=== PATIENT | male | born 1955 | race Caucasian/White ===

== ENCOUNTER 2016-11-21 18:47 | Emergency (ER) | payer MEDICAID ==
[~2016-11-21] VITALS: Ht 195.6 cm; Wt 82.2 kg
[~2016-11-21 18:47] MED LIST: ASPI81CH43; FAMO40TA49; FENO5TAB; GLIP1TAB38
[2016-11-21 19:41] LABS: Basophils # (auto) 0.1 uL; Basophils % (auto) 0.6 % (0.0-2.0); DEFINITIVE VIEW TRANSMISSION; Eosinophils # (auto) 0.3 uL; Eosinophils % (auto) 2.7 % (0.0-7.0); Hematocrit 52.1 % (41.0-53.0); Hemoglobin 17.7 g/dL (13.5-17.5); Lymphocytes # (auto) 2.2 uL; Lymphocytes % (auto) 18.8 % (10.0-50.0); Mean Corpuscular Hemoglobin 29.2 pg (28.0-32.0); Mean Platelet Volume 7.6 fL (7.4-10.4); Monocytes # (auto) 0.9 uL; Monocytes % (auto) 7.7 % (0.0-12.0); Neutrophils # (auto) 8.3 uL; Neutrophils % (auto) 70.2 % (37.0-80.0); Platelet Count (auto) 257 10^3/uL (140-450); Red Cell Distribution Width 14.1 % (11.6-16.0); White Blood Cell 11.8 10^3/uL (4.4-10.8)
[2016-11-21 19:54] LABS: INR 1.13 (0.9-1.15); Prothrombin Time 11.6 sec (9.37-12.3)
[2016-11-21 19:57] LABS: Albumin 3.9 g/dL (3.4-5.0); Anion Gap 7 (5-15); Aspartate Aminotransferase 17 U/L (15-37); Blood Urea Nitrogen 15 mg/dL (7-18); Carbon Dioxide 26 mmol/L (21-32); Chloride 102 mmol/L (98-107); GFR African American 97 mL/min; GFR Non-African American 80 mL/min; Glucose 135 mg/dL (74-106); Potassium 4.3 mmol/L (3.5-5.1); Sodium 135 mmol/L (136-145)
[2016-11-21 20:02] LABS: Alkaline Phosphatase 85 U/L (45-117); Bilirubin, Total 0.5 mg/dL (0.2-1.0); Total Protein 7.8 g/dL (6.4-8.2)
[2016-11-21] MEDS ORDERED: IOHEXOL 300 MG/ML 100ML BOTTLE IJ ONE (20:09)
[2016-11-21 20:13] LABS: B-Type Natriuretic Peptide 42.21 pg/mL (0-100)
[2016-11-21 20:22] LABS: Temperature: 21.9 C (20.0-25.0)
[2016-11-21 20:50] VITALS: BP 138/67
== END 2016-11-21 22:07 | disposition home or self-care (01) ==
LOC: ER 18:51
DX: J18.1 Lobar pneumonia, unspecified organism (principal); E11.9 Type 2 diabetes mellitus without complications; I10 Essential (primary) hypertension; I25.810 Atherosclerosis of coronary artery bypass graft(s) without angina pectoris; Z79.82 Long term (current) use of aspirin; Z79.899 Other long term (current) drug therapy
CPT/HCPCS: 36415; 71010; 71260; 74177; 80053; 83735; 83880; 84484; 85025; 85610; 85730; 93005; 99285; Q9967

== ENCOUNTER 2017-03-04 13:48 | Inpatient (IN) | payer MEDICAID ==
[~2017-03-04] VITALS: Ht 193 cm; Wt 76.9 kg
[2017-03-04 15:17] LABS: Basophils # (auto) 0.1 uL; Basophils % (auto) 0.7 % (0.0-2.0); Eosinophils # (auto) 0.6 uL; Eosinophils % (auto) 6.1 % (0.0-7.0); Hematocrit 50.7 % (41.0-53.0); Lymphocytes % (auto) 19.3 % (10.0-50.0); Mean Corpuscular Hemoglobin 29.7 pg (28.0-32.0); Mean Corpuscular Hgb Conc. 33.5 g/dL (32.0-36.0); Mean Corpuscular Volume 88.6 fL (80.0-100.0); Mean Platelet Volume 8.1 fL (7.4-10.4); Monocytes % (auto) 9.5 % (0.0-12.0); Neutrophils # (auto) 6.7 uL; Neutrophils % (auto) 64.4 % (37.0-80.0); Platelet Count (auto) 329 10^3/uL (140-450); Red Cell Distribution Width 14.1 % (11.6-16.0); White Blood Cell 10.4 10^3/uL (4.4-10.8)
[2017-03-04 15:49] LABS: Albumin 3.8 g/dL (3.4-5.0); Alkaline Phosphatase 77 U/L (45-117); Anion Gap 7 (5-15); Aspartate Aminotransferase 30 U/L (15-37); BUN/Creatinine Ratio 33.3; Bilirubin, Total 1.2 mg/dL (0.2-1.0); Blood Urea Nitrogen 34 mg/dL (7-18); Calcium 9.3 mg/dL (8.5-10.1); Carbon Dioxide 27 mmol/L (21-32); Chloride 99 mmol/L (98-107); GFR African American 95 mL/min; GFR Non-African American 78 mL/min; Glucose 93 mg/dL (74-106); Magnesium 2.5 mg/dL (1.6-2.6); Potassium 3.7 mmol/L (3.5-5.1); Sodium 133 mmol/L (136-145); Total Protein 7.6 g/dL (6.4-8.2)
[2017-03-04 16:05] LABS: B-Type Natriuretic Peptide 47.08 pg/mL (0-100)
[2017-03-04 16:11] LABS: Temperature: 23.3 C (20.0-25.0)
[2017-03-04] MEDS ORDERED: DEXTROSE 50% SYRINGE 50 ML IV ONE (16:24)
[2017-03-04] MEDS ORDERED: DEXTROSE (25%) 10 ML SYRG IV ONE (16:30)
[2017-03-04] MEDS ORDERED: LIDOCAINE 2%HCL (LOCAL ANESTH.) INJ 20ML MDV ONE (16:35)
[2017-03-04] MEDS ORDERED: LIDOCAINE 2%HCL (LOCAL ANESTH.) INJ 20ML MDV IJ ONE (16:45)
[2017-03-04] MEDS ORDERED: KETAMINE HCL 50 MG/ML 10ML VIAL IV ONE (17:00)
[2017-03-04] MEDS: InsuLIN REG 1unit/0.01ml Soln (100units/ml) SC SCH ×2 (17:00→22:00)
[2017-03-04] MEDS ORDERED: DEXTROSE (50%) 50ML SYRG IV PRN (17:00)
[2017-03-04] MEDS ORDERED: cefTRIAXone 1GM/50ML D5W 50 ML IV ONE (17:00)
[2017-03-04] MEDS: ACCU-CHEK COMFORT CURVE STRIP VI SCH ×2 (17:00→22:02)
[2017-03-04] MEDS ORDERED: VANCOMYCIN PER PHARMACY 0 MG IV SCH (17:00)
[2017-03-04] MEDS ORDERED: ACETAMINOPHEN 325 MG TAB PO PRN (17:15)
[2017-03-04] MEDS ORDERED: NITROGLYCERIN 0.4 MG SL TAB SL PRN (17:15)
[2017-03-04] MEDS ORDERED: MORPHINE SULF INJ 2 MG/ML SYRINGE 1ML IV PRN (17:15)
[2017-03-04] MEDS ORDERED: HYDROcodone-ACET 5/325MG TAB PO PRN (17:15)
[2017-03-04] MEDS ORDERED: DOCUSATE SOD 100 MG CAP PO PRN (17:15)
[2017-03-04] MEDS ORDERED: TEMAZEPAM 15 MG CAP PO PRN (17:15)
[2017-03-04] MEDS ORDERED: MULTIPLE VITAMIN TAB PO ONE (17:30)
[2017-03-04] MEDS ORDERED: ZINC SULFATE 220 MG CAP PO ONE (17:30)
[2017-03-04 17:38] LABS: INR 1.06 (0.9-1.15); Prothrombin Time 11.6 sec (9.37-12.3)
[2017-03-04] MEDS: ONDANSETRON HCL 4 MG/2 ML VIAL IV PRN (17:38)
[2017-03-04] MEDS: MORPHINE SULF INJ 2 MG/ML SYRINGE 1ML IV PRN (17:38)
[2017-03-04] MEDS: PANTOPRAZOLE 40 MG TAB PO SCH (17:45)
[2017-03-04] MEDS ORDERED: LISI10TA6 PO (18:05)
[2017-03-04] MEDS ORDERED: CAR3125T PO (18:05)
[2017-03-04] MEDS ORDERED: GABA-497 PO (18:05)
[2017-03-04] MEDS ORDERED: PANT40TA2 PO (18:06)
[2017-03-04] MEDS ORDERED: AMIO200T33 PO (18:06)
[2017-03-04] MEDS ORDERED: INSLANTI SC (18:06)
[2017-03-04] MEDS ORDERED: TIOTCAP IN (18:06)
[2017-03-04] MEDS: VANCOMYCIN 1GM/250ML D5W 250 ML IV SCH ×2 (18:14→22:00)
[2017-03-04] MEDS: HYDROmorphone HCL 2 MG/ML VL IV PRN ×2 (18:25→21:59)
[2017-03-04] MEDS: ALBUTEROL SULF 2.5 MG/0.5ML(0.5%) NEB SOLN NEB SCH (18:50)
[2017-03-04] MEDS: IPRATROPIUM BROM 0.5 MG/2.5ML INH SOL NEB SCH (18:50)
[2017-03-04 20:00] VITALS: BP 107/64
[2017-03-04 21:54] VITALS: BP 125/71
[2017-03-04 22:00] VITALS: BP 116/67
[2017-03-04] MEDS: INSULIN DETEMIR(LEVEMIR) 1unit/0.01ml Soln (100units/ml) SC SCH (22:00)
[2017-03-04] MEDS: GABAPENTIN 300 MG CAP PO SCH (22:00)
[2017-03-04] MEDS ORDERED: FAMOTIDINE 20 MG TAB PO SCH (22:00)
[2017-03-04] MEDS: ASCORBIC ACID 500 MG TAB PO SCH (22:00)
[2017-03-04] MEDS: AMIODARONE HCL 200 MG TAB PO SCH (22:00)
[2017-03-04] MEDS: SODIUM CHLOR 0.9% PF (SALINE LOCK) 10ML VIAL IV SCH (22:09)
[2017-03-04] MEDS: CARVEDILOL 3.125 MG TAB PO SCH (23:37)
[2017-03-04 23:45] VITALS: BP 90/52
[2017-03-05] MEDS: IPRATROPIUM BROM 0.5 MG/2.5ML INH SOL NEB SCH ×4 (00:20→18:43)
[2017-03-05] MEDS: ALBUTEROL SULF 2.5 MG/0.5ML(0.5%) NEB SOLN NEB SCH ×4 (00:20→18:43)
[2017-03-05] MEDS: HYDROmorphone HCL 2 MG/ML VL IV PRN ×6 (01:46→18:28)
[2017-03-05 04:00] VITALS: BP 92/57
[2017-03-05 05:00] VITALS: BP 124/70
[2017-03-05] MEDS: VANCOMYCIN 1GM/250ML D5W 250 ML IV SCH ×2 (05:15→14:11)
[2017-03-05 05:44] LABS: Basophils # (auto) 0.1 uL; Basophils % (auto) 0.7 % (0.0-2.0); Eosinophils # (auto) 0.5 uL; Eosinophils % (auto) 5.7 % (0.0-7.0); Hematocrit 46.2 % (41.0-53.0); Hemoglobin 15.6 g/dL (13.5-17.5); Lymphocytes % (auto) 21.7 % (10.0-50.0); Mean Corpuscular Hemoglobin 29.9 pg (28.0-32.0); Mean Corpuscular Hgb Conc. 33.8 g/dL (32.0-36.0); Mean Corpuscular Volume 88.5 fL (80.0-100.0); Mean Platelet Volume 8.1 fL (7.4-10.4); Monocytes % (auto) 10.9 % (0.0-12.0); Neutrophils # (auto) 5.6 uL; Platelet Count (auto) 267 10^3/uL (140-450); Red Cell Distribution Width 14.2 % (11.6-16.0); White Blood Cell 9.2 10^3/uL (4.4-10.8)
[2017-03-05] MEDS ORDERED: PNEUMOCOCCAL VACC POLYS 25 MCG/0.5 ML VIAL IM ONE ×2 (06:00→10:00)
[2017-03-05 06:01] LABS: Potassium 4.1 mmol/L (3.5-5.1)
[2017-03-05 06:09] LABS: Albumin 3.1 g/dL (3.4-5.0); Calcium 8.6 mg/dL (8.5-10.1)
[2017-03-05 06:13] LABS: Bilirubin, Total 0.8 mg/dL (0.2-1.0)
[2017-03-05] MEDS: SODIUM CHLOR 0.9% PF (SALINE LOCK) 10ML VIAL IV SCH ×2 (06:27→14:01)
[2017-03-05] MEDS: MORPHINE SULF INJ 2 MG/ML SYRINGE 1ML IV PRN ×2 (06:58→20:55)
[2017-03-05] MEDS: InsuLIN REG 1unit/0.01ml Soln (100units/ml) SC SCH ×4 (06:59→21:47)
[2017-03-05] MEDS: ACCU-CHEK COMFORT CURVE STRIP VI SCH ×4 (06:59→21:47)
[2017-03-05 08:00] VITALS: BP 123/69
[2017-03-05] MEDS ORDERED: cefTRIAXone 1GM/50ML D5W 50 ML IV SCH (09:00)
[2017-03-05 09:21] VITALS: BP 129/63
[2017-03-05] MEDS: ASCORBIC ACID 500 MG TAB PO SCH ×2 (09:38→21:44)
[2017-03-05] MEDS: ZINC SULFATE 220 MG CAP PO SCH (09:39)
[2017-03-05] MEDS: MULTIPLE VITAMIN TAB PO SCH (09:39)
[2017-03-05] MEDS: GABAPENTIN 300 MG CAP PO SCH ×2 (09:40→21:44)
[2017-03-05] MEDS: AMIODARONE HCL 200 MG TAB PO SCH ×2 (09:40→21:44)
[2017-03-05] MEDS: PANTOPRAZOLE 40 MG TAB PO SCH (09:41)
[2017-03-05] MEDS: CARVEDILOL 3.125 MG TAB PO SCH ×2 (10:00→21:45)
[2017-03-05] MEDS: LISINOPRIL 10 MG TAB PO SCH (10:00)
[2017-03-05] MEDS ORDERED: PATIENTS OWN MEDICATION IN SCH ×2 (10:00)
[2017-03-05 11:57] VITALS: BP 98/60
[2017-03-05] MEDS ORDERED: HYDR-4663 PO (16:25)
[2017-03-05] MEDS ORDERED: SODIUM CHLORIDE 0.9% 250 ML IV ONE (18:45)
[2017-03-05 19:52] VITALS: BP 130/70
[2017-03-05] MEDS: CLINDAMYCIN 300MG IV 50 ML IV SCH (21:44)
[2017-03-05] MEDS: INSULIN DETEMIR(LEVEMIR) 1unit/0.01ml Soln (100units/ml) SC SCH (21:48)
[2017-03-05] MEDS: SODIUM CHLORIDE 0.9% 1,000 ML IV SCH (21:51)
[2017-03-06] VITALS: BP 145/70
[2017-03-06] MEDS: MORPHINE SULF INJ 2 MG/ML SYRINGE 1ML IV PRN ×4 (01:10→20:15)
[2017-03-06] MEDS: ALBUTEROL SULF 2.5 MG/0.5ML(0.5%) NEB SOLN NEB SCH ×4 (01:44→18:12)
[2017-03-06] MEDS: IPRATROPIUM BROM 0.5 MG/2.5ML INH SOL NEB SCH ×4 (01:44→18:12)
[2017-03-06 04:00] VITALS: BP 132/61
[2017-03-06] MEDS: SODIUM CHLORIDE 0.9% 1,000 ML IV SCH ×2 (05:11→13:00)
[2017-03-06] MEDS: CLINDAMYCIN 300MG IV 50 ML IV SCH ×3 (05:12→21:33)
[2017-03-06 05:52] LABS: Basophils # (auto) 0 uL; Basophils % (auto) 0.4 % (0.0-2.0); Eosinophils # (auto) 0.3 uL; Eosinophils % (auto) 3.3 % (0.0-7.0); Hemoglobin 14.9 g/dL (13.5-17.5); Lymphocytes # (auto) 0.8 uL; Lymphocytes % (auto) 8.4 % (10.0-50.0); Mean Corpuscular Hemoglobin 29.8 pg (28.0-32.0); Mean Corpuscular Hgb Conc. 33.8 g/dL (32.0-36.0); Mean Corpuscular Volume 88.2 fL (80.0-100.0); Mean Platelet Volume 7.9 fL (7.4-10.4); Monocytes # (auto) 0.9 uL; Monocytes % (auto) 9.9 % (0.0-12.0); Neutrophils # (auto) 7.1 uL; Platelet Count (auto) 243 10^3/uL (140-450); Red Cell Distribution Width 13.7 % (11.6-16.0); White Blood Cell 9.1 10^3/uL (4.4-10.8)
[2017-03-06 06:15] LABS: Albumin 3.1 g/dL (3.4-5.0); BUN/Creatinine Ratio 24.7; Bilirubin, Total 0.9 mg/dL (0.2-1.0); Calcium 8.4 mg/dL (8.5-10.1); Potassium 4.3 mmol/L (3.5-5.1); Total Protein 6.3 g/dL (6.4-8.2)
[2017-03-06] MEDS: InsuLIN REG 1unit/0.01ml Soln (100units/ml) SC SCH ×4 (06:29→22:32)
[2017-03-06] MEDS: ACCU-CHEK COMFORT CURVE STRIP VI SCH ×4 (06:29→21:38)
[2017-03-06 08:00] VITALS: BP 156/68
[2017-03-06] MEDS: GABAPENTIN 300 MG CAP PO SCH ×2 (10:58→21:33)
[2017-03-06] MEDS: ASCORBIC ACID 500 MG TAB PO SCH ×2 (10:58→21:33)
[2017-03-06] MEDS: ZINC SULFATE 220 MG CAP PO SCH (10:58)
[2017-03-06] MEDS: AMIODARONE HCL 200 MG TAB PO SCH ×2 (10:59→21:37)
[2017-03-06] MEDS: MULTIPLE VITAMIN TAB PO SCH (10:59)
[2017-03-06] MEDS: PANTOPRAZOLE 40 MG TAB PO SCH (10:59)
[2017-03-06] MEDS: CARVEDILOL 3.125 MG TAB PO SCH ×2 (11:00→21:37)
[2017-03-06 12:00] VITALS: BP 120/61
[2017-03-06] MEDS: LISINOPRIL 10 MG TAB PO SCH (12:29)
[2017-03-06 15:54] VITALS: BP 114/64
[2017-03-06 20:38] VITALS: BP 105/52
[2017-03-06] MEDS: INSULIN DETEMIR(LEVEMIR) 1unit/0.01ml Soln (100units/ml) SC SCH (22:32)
[2017-03-07] VITALS (7 sets, daily range): BP systolic 110–135; BP diastolic 45–68
[2017-03-07] MEDS: ALBUTEROL SULF 2.5 MG/0.5ML(0.5%) NEB SOLN NEB SCH ×5 (00:08→23:32)
[2017-03-07] MEDS: IPRATROPIUM BROM 0.5 MG/2.5ML INH SOL NEB SCH ×5 (00:08→23:32)
[2017-03-07] MEDS: MORPHINE SULF INJ 2 MG/ML SYRINGE 1ML IV PRN ×5 (02:06→22:22)
[2017-03-07] MEDS: CLINDAMYCIN 300MG IV 50 ML IV SCH ×3 (05:35→21:34)
[2017-03-07] MEDS: SODIUM CHLORIDE 0.9% 1,000 ML IV SCH (05:39)
[2017-03-07] MEDS: InsuLIN REG 1unit/0.01ml Soln (100units/ml) SC SCH ×4 (06:34→21:31)
[2017-03-07] MEDS: ACCU-CHEK COMFORT CURVE STRIP VI SCH ×4 (06:34→21:29)
[2017-03-07] MEDS: MULTIPLE VITAMIN TAB PO SCH (10:00)
[2017-03-07] MEDS: AZITHROMYCIN 500MG/D5W 250ML 250 ML IV SCH (10:35)
[2017-03-07] MEDS: GABAPENTIN 300 MG CAP PO SCH ×2 (10:36→21:26)
[2017-03-07] MEDS: ASCORBIC ACID 500 MG TAB PO SCH ×2 (10:36→21:27)
[2017-03-07] MEDS: PANTOPRAZOLE 40 MG TAB PO SCH (10:36)
[2017-03-07] MEDS: LISINOPRIL 10 MG TAB PO SCH (10:36)
[2017-03-07] MEDS: ZINC SULFATE 220 MG CAP PO SCH (10:36)
[2017-03-07] MEDS: AMIODARONE HCL 200 MG TAB PO SCH ×2 (10:38→21:25)
[2017-03-07] MEDS: CARVEDILOL 3.125 MG TAB PO SCH ×2 (10:39→21:34)
[2017-03-07] MEDS: HYDROcodone-ACET 10/325MG TAB PO PRN (21:20)
[2017-03-07] MEDS: INSULIN DETEMIR(LEVEMIR) 1unit/0.01ml Soln (100units/ml) SC SCH (21:32)
[2017-03-08] VITALS (7 sets, daily range): BP systolic 106–136; BP diastolic 57–62
[2017-03-08] MEDS: SODIUM CHLORIDE 0.9% 1,000 ML IV SCH ×4 (01:26→21:59)
[2017-03-08] MEDS: MORPHINE SULF INJ 2 MG/ML SYRINGE 1ML IV PRN ×5 (03:33→22:13)
[2017-03-08] MEDS: CLINDAMYCIN 300MG IV 50 ML IV SCH ×3 (05:46→22:11)
[2017-03-08 05:51] LABS: Basophils # (auto) 0 uL; Basophils % (auto) 0.5 % (0.0-2.0); Eosinophils # (auto) 0.2 uL; Eosinophils % (auto) 3.3 % (0.0-7.0); Hematocrit 36.6 % (41.0-53.0); Hemoglobin 12.7 g/dL (13.5-17.5); Lymphocytes # (auto) 0.9 uL; Lymphocytes % (auto) 13.5 % (10.0-50.0); Mean Corpuscular Hemoglobin 31.1 pg (28.0-32.0); Mean Corpuscular Hgb Conc. 34.7 g/dL (32.0-36.0); Mean Corpuscular Volume 89.6 fL (80.0-100.0); Mean Platelet Volume 7.5 fL (7.4-10.4); Monocytes # (auto) 0.7 uL; Monocytes % (auto) 10.4 % (0.0-12.0); Neutrophils # (auto) 5.1 uL; Neutrophils % (auto) 72.3 % (37.0-80.0); Platelet Count (auto) 192 10^3/uL (140-450); Red Cell Distribution Width 14.1 % (11.6-16.0)
[2017-03-08] MEDS: ACCU-CHEK COMFORT CURVE STRIP VI SCH ×4 (05:55→22:13)
[2017-03-08] MEDS: InsuLIN REG 1unit/0.01ml Soln (100units/ml) SC SCH ×4 (05:55→22:28)
[2017-03-08] MEDS: IPRATROPIUM BROM 0.5 MG/2.5ML INH SOL NEB SCH ×3 (06:06→20:10)
[2017-03-08] MEDS: ALBUTEROL SULF 2.5 MG/0.5ML(0.5%) NEB SOLN NEB SCH ×3 (06:06→20:10)
[2017-03-08 06:10] LABS: BUN/Creatinine Ratio 16.9; Calcium 7.9 mg/dL (8.5-10.1); Potassium 3.7 mmol/L (3.5-5.1)
[2017-03-08] MEDS: AZITHROMYCIN 500MG/D5W 250ML 250 ML IV SCH (09:36)
[2017-03-08] MEDS: ZINC SULFATE 220 MG CAP PO SCH (09:39)
[2017-03-08] MEDS: MULTIPLE VITAMIN TAB PO SCH (09:39)
[2017-03-08] MEDS: GABAPENTIN 300 MG CAP PO SCH ×2 (09:40→22:13)
[2017-03-08] MEDS: AMIODARONE HCL 200 MG TAB PO SCH ×2 (09:40→22:12)
[2017-03-08] MEDS: CARVEDILOL 3.125 MG TAB PO SCH ×2 (09:41→22:12)
[2017-03-08] MEDS: PANTOPRAZOLE 40 MG TAB PO SCH (09:41)
[2017-03-08] MEDS: ASCORBIC ACID 500 MG TAB PO SCH ×2 (09:42→22:13)
[2017-03-08] MEDS: LISINOPRIL 10 MG TAB PO SCH (09:42)
[2017-03-08 15:31] LABS: Base Excess 1.3 mmol/L (-2.0-2.0); Blood 02Sat 89.5 % (96-100); Blood COHb 0.4 % (0.5-1.5); Blood MetHb 0.2 % (0.0-1.5); HCO3 27.8 mmol/L (22-26.0); HHb 10.4 % (0.0-5.0); MODE NC; PCO2 51.2 mmHg (35.0-45.0); PCO2(T) 51.2 mmHg (35.0-45.0); PO2 61.7 mmHg (80.0-100.0); PO2(T) 61.7 mmHg (80.0-100.0); Room 0240T; Sample Type Arterial; pH 7.352 (7.350-7.450)
[2017-03-08] MEDS: ACETYLCYSTEINE 10 %(100MG/ML) SOL 4ML NEB SCH (20:10)
[2017-03-08] MEDS: INSULIN DETEMIR(LEVEMIR) 1unit/0.01ml Soln (100units/ml) SC SCH (22:29)
[2017-03-09] MEDS: ACETYLCYSTEINE 10 %(100MG/ML) SOL 4ML NEB SCH ×7 (01:22→22:25)
[2017-03-09] MEDS: ALBUTEROL SULF 2.5 MG/0.5ML(0.5%) NEB SOLN NEB SCH ×5 (01:24→18:15)
[2017-03-09] MEDS: MORPHINE SULF INJ 2 MG/ML SYRINGE 1ML IV PRN ×4 (03:30→18:37)
[2017-03-09] MEDS: SODIUM CHLORIDE 0.9% 1,000 ML IV SCH ×3 (04:16→17:27)
[2017-03-09 04:42] VITALS: BP 120/60
[2017-03-09] MEDS: CLINDAMYCIN 300MG IV 50 ML IV SCH ×3 (05:54→22:15)
[2017-03-09] MEDS: InsuLIN REG 1unit/0.01ml Soln (100units/ml) SC SCH ×4 (06:06→22:00)
[2017-03-09] MEDS: ACCU-CHEK COMFORT CURVE STRIP VI SCH ×4 (06:06→22:00)
[2017-03-09] MEDS: IPRATROPIUM BROM 0.5 MG/2.5ML INH SOL NEB SCH ×4 (06:08→18:15)
[2017-03-09 07:37] VITALS: BP 127/62
[2017-03-09 08:00] VITALS: BP 127/62
[2017-03-09] MEDS: AMIODARONE HCL 200 MG TAB PO SCH ×2 (09:38→22:16)
[2017-03-09] MEDS: ZINC SULFATE 220 MG CAP PO SCH (09:38)
[2017-03-09] MEDS: ASCORBIC ACID 500 MG TAB PO SCH ×2 (09:39→22:17)
[2017-03-09] MEDS: LISINOPRIL 10 MG TAB PO SCH (09:39)
[2017-03-09] MEDS: PANTOPRAZOLE 40 MG TAB PO SCH (09:39)
[2017-03-09] MEDS: MULTIPLE VITAMIN TAB PO SCH (09:39)
[2017-03-09] MEDS: GABAPENTIN 300 MG CAP PO SCH ×2 (09:40→22:24)
[2017-03-09] MEDS: CARVEDILOL 3.125 MG TAB PO SCH ×2 (09:40→22:17)
[2017-03-09] MEDS: AZITHROMYCIN 500MG/D5W 250ML 250 ML IV SCH (09:41)
[2017-03-09 11:06] VITALS: BP 109/56
[2017-03-09 16:20] VITALS: BP 124/58
[2017-03-09] MEDS: INSULIN DETEMIR(LEVEMIR) 1unit/0.01ml Soln (100units/ml) SC SCH (22:00)
[2017-03-09] MEDS ORDERED: NALOXONE HCL 0.4 MG/ML VIAL ONE (22:31)
[2017-03-09] MEDS ORDERED: SUCCINYLCHOLINE CHLORIDE 20 MG/ML 10ML VIAL IV ONE (22:58)
[2017-03-09] MEDS ORDERED: ETOMIDATE (2MG/ML) 20ML VIAL IV ONE ×2 (22:58→23:30)
[2017-03-09] MEDS ORDERED: MIDAZOLAM HCL 1MG/1ML-2 ML VIAL ONE (22:59)
[2017-03-09] MEDS ORDERED: methylPREDNISolone SOD SUCC 125 MG/2 ML VL ONE (23:02)
[2017-03-09] MEDS ORDERED: MIDAZOLAM HCL 5 MG/ML-1ML VIAL ONE (23:06)
[2017-03-09] MEDS ORDERED: PROPOFOL 100 ML IV ONE (23:22)
[2017-03-09] MEDS ORDERED: MIDAZOLAM HCL 5 MG/ML-1ML VIAL IV ONE (23:30)
[2017-03-09] MEDS ORDERED: methylPREDNISolone SOD SUCC 125 MG/2 ML VL IV ONE ×2 (23:30)
[2017-03-09] MEDS ORDERED: NALOXONE HCL 0.4 MG/ML VIAL IV ONE (23:30)
[2017-03-09] MEDS ORDERED: FUROSEMIDE 40 MG/4 ML VIAL ONE (23:41)
[2017-03-09] MEDS ORDERED: FUROSEMIDE 40 MG/4 ML VIAL IV ONE (23:45)
[2017-03-09] MEDS ORDERED: MIDAZOLAM DRIP 100 mg/100mL NS 100 ML IV ONE (23:46)
[2017-03-09] MEDS: PROPOFOL 100 ML IV SCH (23:47)
[2017-03-10] VITALS (102 sets, daily range): BP systolic 66–137; BP diastolic 32–72
[2017-03-10] MEDS: NOREPINEPHRINE BITARTRATE 250 ML IV SCH (00:15)
[2017-03-10] MEDS ORDERED: NOREPINEPHRINE BITARTRATE 250 ML IV ONE (00:15)
[2017-03-10] MEDS: MORPHINE SULF INJ 2 MG/ML SYRINGE 1ML IV PRN (01:21)
[2017-03-10] MEDS: ACCU-CHEK COMFORT CURVE STRIP VI SCH ×5 (01:32→22:40)
[2017-03-10] MEDS: InsuLIN REG 1unit/0.01ml Soln (100units/ml) SC SCH ×5 (01:33→22:40)
[2017-03-10 03:57] LABS: Allen Test Yes; Base Excess -1.2 mmol/L (-2.0-2.0); Blood 02Sat 97.3 % (96-100); Blood COHb 1.1 % (0.5-1.5); Blood MetHb 0.3 % (0.0-1.5); HHb 2.7 % (0.0-5.0); MODE VENT - A/C; O2Hb 95.9 % (94.0-97.0); PCO2 41.9 mmHg (35.0-45.0); PCO2(T) 41.9 mmHg (35.0-45.0); PO2 100.5 mmHg (80.0-100.0); PO2(T) 100.5 mmHg (80.0-100.0); Sample Type Arterial; pH 7.376 (7.350-7.450)
[2017-03-10 03:59] LABS: Allen Test Yes; Base Excess -1.1 mmol/L (-2.0-2.0); Blood 02Sat 96.2 % (96-100); Blood COHb 0.1 % (0.5-1.5); Blood MetHb 0.4 % (0.0-1.5); HCO3 32.1 mmol/L (22-26.0); HHb 3.8 % (0.0-5.0); MODE MASK - BIPAP; O2Hb 95.7 % (94.0-97.0); PIP 12; PO2 119.5 mmHg (80.0-100.0); PO2(T) 119.5 mmHg (80.0-100.0); Room 0237T; Sample Type Arterial; pH 7.103 (7.350-7.450)
[2017-03-10] MEDS: SODIUM CHLORIDE 0.9% 1,000 ML IV SCH (04:48)
[2017-03-10] MEDS: CLINDAMYCIN 300MG IV 50 ML IV SCH ×3 (06:18→22:40)
[2017-03-10] MEDS: MIDAZOLAM DRIP 100 mg/100mL NS 100 ML IV SCH ×3 (06:19→12:22)
[2017-03-10] MEDS: ACETYLCYSTEINE 10 %(100MG/ML) SOL 4ML NEB SCH ×4 (06:36→22:55)
[2017-03-10] MEDS: IPRATROPIUM BROM 0.5 MG/2.5ML INH SOL NEB SCH ×4 (06:36→19:05)
[2017-03-10] MEDS: ALBUTEROL SULF 2.5 MG/0.5ML(0.5%) NEB SOLN NEB SCH ×4 (06:36→19:05)
[2017-03-10 07:46] LABS: Allen Test Yes; Base Excess 1.8 mmol/L (-2.0-2.0); Blood 02Sat 95.7 % (96-100); Blood MetHb 0.2 % (0.0-1.5); HCO3 26.9 mmol/L (22-26.0); HHb 4.2 % (0.0-5.0); MODE VENT - A/C; O2Hb 94.6 % (94.0-97.0); PO2 82.9 mmHg (80.0-100.0); PO2(T) 82.9 mmHg (80.0-100.0); Sample Type Arterial; pH 7.404 (7.350-7.450)
[2017-03-10 08:46] LABS: Albumin 2.3 g/dL (3.4-5.0); BUN/Creatinine Ratio 21.1; Calcium 8.2 mg/dL (8.5-10.1); Potassium 3.6 mmol/L (3.5-5.1)
[2017-03-10 08:51] LABS: Bilirubin, Total 0.5 mg/dL (0.2-1.0)
[2017-03-10] MEDS: PROPOFOL 100 ML IV SCH (09:12)
[2017-03-10] MEDS: LISINOPRIL 10 MG TAB PO SCH (10:00)
[2017-03-10] MEDS: CARVEDILOL 3.125 MG TAB PO SCH ×2 (10:00→22:00)
[2017-03-10] MEDS: PANTOPRAZOLE 40 MG TAB PO SCH (10:26)
[2017-03-10] MEDS: AZITHROMYCIN 500MG/D5W 250ML 250 ML IV SCH (10:26)
[2017-03-10] MEDS: AMIODARONE HCL 200 MG TAB PO SCH ×2 (10:26→22:00)
[2017-03-10] MEDS: MULTIPLE VITAMIN TAB PO SCH (10:26)
[2017-03-10] MEDS: ZINC SULFATE 220 MG CAP PO SCH (10:27)
[2017-03-10] MEDS: ASCORBIC ACID 500 MG TAB PO SCH ×2 (10:27→22:40)
[2017-03-10] MEDS: GABAPENTIN 300 MG CAP PO SCH ×2 (10:27→22:00)
[2017-03-10 11:55] LABS: B-Type Natriuretic Peptide 460.85 pg/mL (0-100)
[2017-03-10 11:59] LABS: Temperature: 23.1 C (20.0-25.0)
[2017-03-10] MEDS: FUROSEMIDE 40 MG/4 ML VIAL IV SCH ×2 (12:08→17:07)
[2017-03-10] MEDS: POTASSIUM CHL 10% (20 MEQ/15ML) ORAL SOLN GT SCH ×2 (12:08→22:40)
[2017-03-10] MEDS ORDERED: SODIUM CHLORIDE 0.9% 1,000 ML IV SCH (13:09)
[2017-03-10] MEDS: ENOXAPARIN SOD 40 MG/0.4 ML SYRINGE SC SCH (13:45)
[2017-03-10] MEDS ORDERED: DIGOXIN 0.125 MG TAB PO ONE (15:00)
[2017-03-10] MEDS: SPIRONOLACTONE 25 MG TAB PO SCH (17:07)
[2017-03-10] MEDS: INSULIN DETEMIR(LEVEMIR) 1unit/0.01ml Soln (100units/ml) SC SCH (22:00)
[2017-03-10] MEDS: ALBUTEROL SULF 2.5 MG/0.5ML(0.5%) NEB SOLN NEB PRN (22:55)
[2017-03-11] VITALS (101 sets, daily range): BP systolic 74–141; BP diastolic 41–77
[2017-03-11] MEDS: ALBUTEROL SULF 2.5 MG/0.5ML(0.5%) NEB SOLN NEB PRN ×2 (02:34→22:14)
[2017-03-11] MEDS: ACETYLCYSTEINE 10 %(100MG/ML) SOL 4ML NEB SCH ×6 (02:34→22:15)
[2017-03-11 04:08] LABS: Basophils # (auto) 0 uL; Eosinophils # (auto) 0 uL; Hematocrit 39.1 % (41.0-53.0); Hemoglobin 13.3 g/dL (13.5-17.5); Lymphocytes # (auto) 0.8 uL; Mean Corpuscular Hemoglobin 30.3 pg (28.0-32.0); Mean Corpuscular Hgb Conc. 33.9 g/dL (32.0-36.0); Mean Corpuscular Volume 89.4 fL (80.0-100.0); Mean Platelet Volume 7.8 fL (7.4-10.4); Platelet Count (auto) 317 10^3/uL (140-450); Red Cell Distribution Width 13.9 % (11.6-16.0); White Blood Cell 12.7 10^3/uL (4.4-10.8)
[2017-03-11 04:23] LABS: INR 1.11 (0.9-1.15); Partial Thromboplastin Time 27.5 sec (22.64-33.71); Prothrombin Time 12.1 sec (9.37-12.3)
[2017-03-11 04:24] LABS: Albumin 2.3 g/dL (3.4-5.0); BUN/Creatinine Ratio 34.9; Bilirubin, Total 0.5 mg/dL (0.2-1.0); Calcium 8.6 mg/dL (8.5-10.1); Total Protein 5.6 g/dL (6.4-8.2)
[2017-03-11] MEDS: FUROSEMIDE 40 MG/4 ML VIAL IV SCH ×2 (06:20→17:58)
[2017-03-11] MEDS: CLINDAMYCIN 300MG IV 50 ML IV SCH ×3 (06:20→22:00)
[2017-03-11] MEDS: ACCU-CHEK COMFORT CURVE STRIP VI SCH ×4 (06:21→22:45)
[2017-03-11] MEDS: SPIRONOLACTONE 25 MG TAB PO SCH ×2 (06:21→17:58)
[2017-03-11] MEDS: InsuLIN REG 1unit/0.01ml Soln (100units/ml) SC SCH ×4 (06:22→23:15)
[2017-03-11] MEDS: ALBUTEROL SULF 2.5 MG/0.5ML(0.5%) NEB SOLN NEB SCH ×4 (06:59→18:22)
[2017-03-11] MEDS: IPRATROPIUM BROM 0.5 MG/2.5ML INH SOL NEB SCH ×4 (06:59→18:22)
[2017-03-11 09:40] LABS: Allen Test Yes; Base Excess 6.5 mmol/L (-2.0-2.0); Blood 02Sat 90.3 % (96-100); Blood COHb 0.8 % (0.5-1.5); Blood MetHb 0.2 % (0.0-1.5); HCO3 30.7 mmol/L (22-26.0); HHb 9.6 % (0.0-5.0); MODE VENT - A/C; O2Hb 89.4 % (94.0-97.0); PCO2 42.6 mmHg (35.0-45.0); PCO2(T) 42.6 mmHg (35.0-45.0); PO2 57.9 mmHg (80.0-100.0); PO2(T) 57.9 mmHg (80.0-100.0); Sample Type Arterial; pH 7.476 (7.350-7.450)
[2017-03-11] MEDS: LISINOPRIL 10 MG TAB PO SCH (10:00)
[2017-03-11] MEDS: CARVEDILOL 3.125 MG TAB PO SCH ×2 (10:00→22:00)
[2017-03-11] MEDS: ZINC SULFATE 220 MG CAP PO SCH (10:45)
[2017-03-11] MEDS: GABAPENTIN 300 MG CAP PO SCH ×2 (10:45→22:00)
[2017-03-11] MEDS: PANTOPRAZOLE 40 MG TAB PO SCH (10:45)
[2017-03-11] MEDS: POTASSIUM CHL 10% (20 MEQ/15ML) ORAL SOLN GT SCH ×2 (10:45→22:00)
[2017-03-11] MEDS: ASCORBIC ACID 500 MG TAB PO SCH ×2 (10:45→22:00)
[2017-03-11] MEDS: AZITHROMYCIN 500MG/D5W 250ML 250 ML IV SCH (10:45)
[2017-03-11] MEDS: DIGOXIN 0.125 MG TAB PO SCH (10:45)
[2017-03-11] MEDS: ENOXAPARIN SOD 40 MG/0.4 ML SYRINGE SC SCH (10:46)
[2017-03-11] MEDS: AMIODARONE HCL 200 MG TAB PO SCH ×2 (10:50→22:00)
[2017-03-11] MEDS: NOREPINEPHRINE BITARTRATE 250 ML IV SCH (11:00)
[2017-03-11] MEDS ORDERED: EPINEPHrine HCL 1 MG/1 ML AMP ONE (11:12)
[2017-03-11] MEDS ORDERED: LIDOCAINE HCL 2% TOP JELLY 5ML TOP ONE (11:12)
[2017-03-11] MEDS ORDERED: LIDOCAINE 2%HCL (LOCAL ANESTH.) INJ 20ML MDV ONE (11:12)
[2017-03-11] MEDS ORDERED: SODIUM CHLORIDE LOCK 10 ML ONE (11:12)
[2017-03-11] MEDS: MIDAZOLAM DRIP 100 mg/100mL NS 100 ML IV SCH ×2 (12:07→19:01)
[2017-03-11] MEDS ORDERED: SODIUM CHLORIDE 0.9% 1,000 ML IV SCH (13:01)
[2017-03-11] MEDS: SODIUM CHLORIDE 0.9% 1,000 ML IV SCH (15:40)
[2017-03-11] MEDS: PROPOFOL 100 ML IV SCH (15:42)
[2017-03-11] MEDS: INSULIN DETEMIR(LEVEMIR) 1unit/0.01ml Soln (100units/ml) SC SCH (22:00)
[2017-03-12] VITALS (90 sets, daily range): BP systolic 88–147; BP diastolic 46–70
[2017-03-12] MEDS: ACETYLCYSTEINE 10 %(100MG/ML) SOL 4ML NEB SCH ×5 (02:21→18:59)
[2017-03-12] MEDS: ALBUTEROL SULF 2.5 MG/0.5ML(0.5%) NEB SOLN NEB PRN (02:21)
[2017-03-12 04:25] LABS: Basophils # (auto) 0 uL; Basophils % (auto) 0.2 % (0.0-2.0); Eosinophils # (auto) 0 uL; Eosinophils % (auto) 0.3 % (0.0-7.0); Hematocrit 38.4 % (41.0-53.0); Hemoglobin 12.9 g/dL (13.5-17.5); Lymphocytes # (auto) 1.4 uL; Lymphocytes % (auto) 13.9 % (10.0-50.0); Mean Corpuscular Hgb Conc. 33.6 g/dL (32.0-36.0); Mean Corpuscular Volume 89.1 fL (80.0-100.0); Mean Platelet Volume 7.9 fL (7.4-10.4); Monocytes % (auto) 10.4 % (0.0-12.0); Neutrophils # (auto) 7.5 uL; Neutrophils % (auto) 75.2 % (37.0-80.0); Platelet Count (auto) 320 10^3/uL (140-450); Red Cell Distribution Width 13.9 % (11.6-16.0)
[2017-03-12 04:44] LABS: Potassium 3.9 mmol/L (3.5-5.1)
[2017-03-12 04:50] LABS: BUN/Creatinine Ratio 36.8; Calcium 8.3 mg/dL (8.5-10.1)
[2017-03-12] MEDS: ALBUTEROL SULF 2.5 MG/0.5ML(0.5%) NEB SOLN NEB SCH ×4 (06:05→18:59)
[2017-03-12] MEDS: IPRATROPIUM BROM 0.5 MG/2.5ML INH SOL NEB SCH ×4 (06:05→18:59)
[2017-03-12] MEDS ORDERED: FUROSEMIDE 20 MG/2 ML VIAL ONE (06:27)
[2017-03-12] MEDS: ACCU-CHEK COMFORT CURVE STRIP VI SCH ×4 (06:35→23:15)
[2017-03-12] MEDS: CLINDAMYCIN 300MG IV 50 ML IV SCH ×3 (06:35→22:30)
[2017-03-12] MEDS: SPIRONOLACTONE 25 MG TAB PO SCH ×2 (06:35→17:53)
[2017-03-12] MEDS: InsuLIN REG 1unit/0.01ml Soln (100units/ml) SC SCH ×4 (06:37→23:35)
[2017-03-12] MEDS: FUROSEMIDE 40 MG/4 ML VIAL IV SCH ×2 (06:37→17:53)
[2017-03-12 07:31] LABS: Allen Test Yes; Base Excess 3.2 mmol/L (-2.0-2.0); Blood 02Sat 92.8 % (96-100); Blood MetHb 0.1 % (0.0-1.5); HCO3 26.7 mmol/L (22-26.0); HHb 7.1 % (0.0-5.0); MODE VENT - A/C; O2Hb 91.8 % (94.0-97.0); PCO2 37.4 mmHg (35.0-45.0); PCO2(T) 37.4 mmHg (35.0-45.0); PO2 66.5 mmHg (80.0-100.0); PO2(T) 66.5 mmHg (80.0-100.0); Sample Type Arterial; pH 7.472 (7.350-7.450)
[2017-03-12] MEDS: LISINOPRIL 10 MG TAB PO SCH (10:00)
[2017-03-12] MEDS ORDERED: MULTIPLE VITAMIN TAB PO SCH (10:00)
[2017-03-12] MEDS: CARVEDILOL 3.125 MG TAB PO SCH ×2 (10:00→23:15)
[2017-03-12] MEDS: ZINC SULFATE 220 MG CAP PO SCH (10:08)
[2017-03-12] MEDS: PANTOPRAZOLE 40 MG TAB PO SCH (10:08)
[2017-03-12] MEDS: ASCORBIC ACID 500 MG TAB PO SCH ×2 (10:09→23:15)
[2017-03-12] MEDS: ENOXAPARIN SOD 40 MG/0.4 ML SYRINGE SC SCH (10:09)
[2017-03-12] MEDS: DIGOXIN 0.125 MG TAB PO SCH (10:09)
[2017-03-12] MEDS: AMIODARONE HCL 200 MG TAB PO SCH ×2 (10:09→23:15)
[2017-03-12] MEDS: GABAPENTIN 300 MG CAP PO SCH ×2 (10:09→23:15)
[2017-03-12] MEDS: POTASSIUM CHL 10% (20 MEQ/15ML) ORAL SOLN GT SCH ×2 (10:10→23:15)
[2017-03-12] MEDS: MULTIPLE VITAMIN PO SCH (12:30)
[2017-03-12] MEDS: NOREPINEPHRINE BITARTRATE 250 ML IV SCH (13:40)
[2017-03-12] MEDS: INSULIN DETEMIR(LEVEMIR) 1unit/0.01ml Soln (100units/ml) SC SCH (22:00)
[2017-03-13] VITALS (90 sets, daily range): BP systolic 69–151; BP diastolic 41–70
[2017-03-13] MEDS: ALBUTEROL SULF 2.5 MG/0.5ML(0.5%) NEB SOLN NEB PRN (00:36)
[2017-03-13] MEDS: ACETYLCYSTEINE 10 %(100MG/ML) SOL 4ML NEB SCH ×5 (00:36→22:15)
[2017-03-13] MEDS: MIDAZOLAM DRIP 100 mg/100mL NS 100 ML IV SCH (00:53)
[2017-03-13] MEDS: NOREPINEPHRINE BITARTRATE 250 ML IV SCH (00:53)
[2017-03-13] MEDS: MORPHINE SULF INJ 2 MG/ML SYRINGE 1ML IV PRN (03:32)
[2017-03-13 03:41] LABS: BUN/Creatinine Ratio 41.4; Calcium 8.3 mg/dL (8.5-10.1); Potassium 4.1 mmol/L (3.5-5.1)
[2017-03-13] MEDS: PROPOFOL 100 ML IV SCH (04:15)
[2017-03-13] MEDS: FUROSEMIDE 40 MG/4 ML VIAL IV SCH ×2 (06:00→18:17)
[2017-03-13] MEDS: CLINDAMYCIN 300MG IV 50 ML IV SCH ×3 (06:00→21:35)
[2017-03-13] MEDS: SPIRONOLACTONE 25 MG TAB PO SCH ×2 (06:00→18:17)
[2017-03-13] MEDS: IPRATROPIUM BROM 0.5 MG/2.5ML INH SOL NEB SCH ×4 (06:23→18:39)
[2017-03-13] MEDS: ALBUTEROL SULF 2.5 MG/0.5ML(0.5%) NEB SOLN NEB SCH ×4 (06:23→18:39)
[2017-03-13] MEDS: ACCU-CHEK COMFORT CURVE STRIP VI SCH ×4 (06:36→22:05)
[2017-03-13] MEDS: InsuLIN REG 1unit/0.01ml Soln (100units/ml) SC SCH ×4 (06:37→22:05)
[2017-03-13 08:47] LABS: Allen Test Modified; Blood 02Sat 93.2 % (96-100); Blood COHb 1.4 % (0.5-1.5); Blood MetHb 0.1 % (0.0-1.5); HCO3 28.2 mmol/L (22-26.0); HHb 6.7 % (0.0-5.0); MODE VENT - A/C; O2Hb 91.8 % (94.0-97.0); PCO2 40.5 mmHg (35.0-45.0); PCO2(T) 40.5 mmHg (35.0-45.0); PO2 68.7 mmHg (80.0-100.0); PO2(T) 68.7 mmHg (80.0-100.0); Sample Type Arterial
[2017-03-13] MEDS: GABAPENTIN 300 MG CAP PO SCH ×2 (09:34→21:33)
[2017-03-13] MEDS: PANTOPRAZOLE 40 MG TAB PO SCH (09:34)
[2017-03-13] MEDS: ASCORBIC ACID 500 MG TAB PO SCH ×2 (09:34→21:33)
[2017-03-13] MEDS: ENOXAPARIN SOD 40 MG/0.4 ML SYRINGE SC SCH (09:34)
[2017-03-13] MEDS: ZINC SULFATE 220 MG CAP PO SCH (09:34)
[2017-03-13] MEDS: AMIODARONE HCL 200 MG TAB PO SCH ×2 (09:34→21:33)
[2017-03-13] MEDS: DIGOXIN 0.125 MG TAB PO SCH (09:35)
[2017-03-13] MEDS: SODIUM CHLORIDE 0.9% 1,000 ML IV SCH (09:35)
[2017-03-13] MEDS: POTASSIUM CHL 10% (20 MEQ/15ML) ORAL SOLN GT SCH ×2 (09:35→21:34)
[2017-03-13] MEDS: CARVEDILOL 3.125 MG TAB PO SCH ×2 (09:36→22:00)
[2017-03-13] MEDS: LISINOPRIL 10 MG TAB PO SCH (09:37)
[2017-03-13] MEDS: MULTIPLE VITAMIN PO SCH (11:07)
[2017-03-13] MEDS ORDERED: Diabetisource AC 1 Liter PO SCH (12:30)
[2017-03-13] MEDS: HYDROcodone-ACET 10/325MG TAB PO PRN (21:33)
[2017-03-13] MEDS: INSULIN DETEMIR(LEVEMIR) 1unit/0.01ml Soln (100units/ml) SC SCH (22:00)
[2017-03-14] VITALS (101 sets, daily range): BP systolic 73–211; BP diastolic 41–107
[2017-03-14] MEDS: NOREPINEPHRINE BITARTRATE 250 ML IV SCH (00:53)
[2017-03-14] MEDS: ACETYLCYSTEINE 10 %(100MG/ML) SOL 4ML NEB SCH ×6 (02:00→22:14)
[2017-03-14 04:17] LABS: Basophils # (auto) 0 uL; Basophils % (auto) 0.1 % (0.0-2.0); CONDITION AutoValidated; Eosinophils # (auto) 0.2 uL; Eosinophils % (auto) 1.3 % (0.0-7.0); Hematocrit 41.6 % (41.0-53.0); Lymphocytes # (auto) 1.2 uL; Lymphocytes % (auto) 10.1 % (10.0-50.0); Mean Corpuscular Hemoglobin 30.1 pg (28.0-32.0); Mean Corpuscular Hgb Conc. 33.7 g/dL (32.0-36.0); Mean Corpuscular Volume 89.2 fL (80.0-100.0); Mean Platelet Volume 8.2 fL (7.4-10.4); Monocytes # (auto) 1.3 uL; Neutrophils # (auto) 9.4 uL; Neutrophils % (auto) 77.5 % (37.0-80.0); Platelet Count (auto) 302 10^3/uL (140-450); Red Cell Distribution Width 13.7 % (11.6-16.0); White Blood Cell 12.1 10^3/uL (4.4-10.8)
[2017-03-14 04:29] LABS: Calcium 8.8 mg/dL (8.5-10.1); Potassium 3.7 mmol/L (3.5-5.1)
[2017-03-14 04:31] LABS: BUN/Creatinine Ratio 47.4
[2017-03-14] MEDS: CLINDAMYCIN 300MG IV 50 ML IV SCH ×3 (06:00→21:24)
[2017-03-14] MEDS: FUROSEMIDE 40 MG/4 ML VIAL IV SCH ×2 (06:00→18:13)
[2017-03-14] MEDS: SPIRONOLACTONE 25 MG TAB PO SCH ×2 (06:00→18:13)
[2017-03-14] MEDS: ALBUTEROL SULF 2.5 MG/0.5ML(0.5%) NEB SOLN NEB SCH ×4 (06:10→18:33)
[2017-03-14] MEDS: IPRATROPIUM BROM 0.5 MG/2.5ML INH SOL NEB SCH ×4 (06:10→18:33)
[2017-03-14] MEDS: ACCU-CHEK COMFORT CURVE STRIP VI SCH ×4 (07:45→21:35)
[2017-03-14] MEDS: InsuLIN REG 1unit/0.01ml Soln (100units/ml) SC SCH ×4 (07:48→21:36)
[2017-03-14] MEDS: SODIUM CHLORIDE 0.9% 1,000 ML IV SCH ×2 (08:00→14:00)
[2017-03-14] MEDS: DEXMEDETOMIDINE HCL 400 MCG in SODIUM CHL 0.9% 96 ML IV SCH ×2 (08:15→12:10)
[2017-03-14] MEDS: ENOXAPARIN SOD 40 MG/0.4 ML SYRINGE SC SCH (09:55)
[2017-03-14] MEDS: GABAPENTIN 300 MG CAP PO SCH ×2 (09:55→21:26)
[2017-03-14] MEDS: MULTIPLE VITAMIN PO SCH (09:55)
[2017-03-14] MEDS: DIGOXIN 0.125 MG TAB PO SCH (09:55)
[2017-03-14] MEDS: HYDROcodone-ACET 10/325MG TAB PO PRN (09:55)
[2017-03-14] MEDS: LISINOPRIL 10 MG TAB PO SCH (09:55)
[2017-03-14] MEDS: CARVEDILOL 3.125 MG TAB PO SCH ×2 (09:55→21:25)
[2017-03-14] MEDS: ZINC SULFATE 220 MG CAP PO SCH (09:55)
[2017-03-14] MEDS: ASCORBIC ACID 500 MG TAB PO SCH ×2 (09:55→21:27)
[2017-03-14] MEDS: AMIODARONE HCL 200 MG TAB PO SCH ×2 (09:55→21:25)
[2017-03-14] MEDS: POTASSIUM CHL 10% (20 MEQ/15ML) ORAL SOLN GT SCH ×2 (09:55→21:24)
[2017-03-14 09:56] LABS: Allen Test Yes; Blood 02Sat 94.4 % (96-100); Blood COHb 1.7 % (0.5-1.5); Blood MetHb 0.3 % (0.0-1.5); HCO3 28.3 mmol/L (22-26.0); HHb 5.5 % (0.0-5.0); MODE VENT - A/C; O2Hb 92.5 % (94.0-97.0); PCO2 41.1 mmHg (35.0-45.0); PCO2(T) 41.1 mmHg (35.0-45.0); PO2 74.3 mmHg (80.0-100.0); PO2(T) 74.3 mmHg (80.0-100.0); Sample Type Arterial; pH 7.456 (7.350-7.450)
[2017-03-14] MEDS: MORPHINE SULF INJ 2 MG/ML SYRINGE 1ML IV PRN ×2 (10:46→16:10)
[2017-03-14] MEDS: OMEPRAZOLE 20MG/10ML ORAL SUSP NG SCH (11:55)
[2017-03-14] MEDS: FREE WATER GT SCH ×2 (18:13→23:33)
[2017-03-14] MEDS: INSULIN DETEMIR(LEVEMIR) 1unit/0.01ml Soln (100units/ml) SC SCH (21:48)
[2017-03-14] MEDS: ALBUTEROL SULF 2.5 MG/0.5ML(0.5%) NEB SOLN NEB PRN (22:14)
[2017-03-15] VITALS (102 sets, daily range): BP systolic 96–143; BP diastolic 37–92
[2017-03-15] MEDS: NOREPINEPHRINE BITARTRATE 250 ML IV SCH (00:53)
[2017-03-15] MEDS: ACETYLCYSTEINE 10 %(100MG/ML) SOL 4ML NEB SCH ×4 (02:13→18:19)
[2017-03-15] MEDS: ALBUTEROL SULF 2.5 MG/0.5ML(0.5%) NEB SOLN NEB PRN (02:13)
[2017-03-15] MEDS: MORPHINE SULF INJ 2 MG/ML SYRINGE 1ML IV PRN ×2 (02:29→14:47)
[2017-03-15 03:56] LABS: Basophils # (auto) 0 uL; Basophils % (auto) 0.2 % (0.0-2.0); CONDITION AutoValidated; Eosinophils # (auto) 0.1 uL; Eosinophils % (auto) 0.4 % (0.0-7.0); Hematocrit 38.8 % (41.0-53.0); Lymphocytes # (auto) 0.9 uL; Lymphocytes % (auto) 7.4 % (10.0-50.0); Mean Corpuscular Hemoglobin 29.8 pg (28.0-32.0); Mean Corpuscular Hgb Conc. 33.6 g/dL (32.0-36.0); Mean Corpuscular Volume 88.9 fL (80.0-100.0); Mean Platelet Volume 8.1 fL (7.4-10.4); Monocytes # (auto) 1.2 uL; Monocytes % (auto) 9.5 % (0.0-12.0); Neutrophils # (auto) 10.2 uL; Neutrophils % (auto) 82.5 % (37.0-80.0); Platelet Count (auto) 304 10^3/uL (140-450); Red Cell Distribution Width 13.8 % (11.6-16.0); White Blood Cell 12.4 10^3/uL (4.4-10.8)
[2017-03-15 04:13] LABS: BUN/Creatinine Ratio 51.6; Calcium 8.5 mg/dL (8.5-10.1); Potassium 3.7 mmol/L (3.5-5.1)
[2017-03-15] MEDS: FREE WATER GT SCH (06:00)
[2017-03-15] MEDS: SPIRONOLACTONE 25 MG TAB PO SCH ×2 (06:00→18:58)
[2017-03-15] MEDS: FUROSEMIDE 40 MG/4 ML VIAL IV SCH (06:00)
[2017-03-15] MEDS: CLINDAMYCIN 300MG IV 50 ML IV SCH (06:00)
[2017-03-15] MEDS: IPRATROPIUM BROM 0.5 MG/2.5ML INH SOL NEB SCH ×4 (06:03→18:19)
[2017-03-15] MEDS: ALBUTEROL SULF 2.5 MG/0.5ML(0.5%) NEB SOLN NEB SCH ×4 (06:03→18:19)
[2017-03-15] MEDS: InsuLIN REG 1unit/0.01ml Soln (100units/ml) SC SCH ×4 (06:49→21:06)
[2017-03-15] MEDS: ACCU-CHEK COMFORT CURVE STRIP VI SCH ×4 (06:51→21:06)
[2017-03-15 06:54] LABS: Allen Test Yes; Base Excess 5.4 mmol/L (-2.0-2.0); Blood 02Sat 93.9 % (96-100); Blood COHb 1.4 % (0.5-1.5); Blood MetHb 0.2 % (0.0-1.5); HCO3 29.9 mmol/L (22-26.0); MODE VENT - A/C; O2Hb 92.4 % (94.0-97.0); PCO2 43.1 mmHg (35.0-45.0); PCO2(T) 43.1 mmHg (35.0-45.0); PO2 70.9 mmHg (80.0-100.0); PO2(T) 70.9 mmHg (80.0-100.0); Sample Type Arterial; pH 7.459 (7.350-7.450)
[2017-03-15 09:02] LABS: Allen Test Yes; Base Excess 8.1 mmol/L (-2.0-2.0); Blood 02Sat 94.2 % (96-100); Blood COHb 0.6 % (0.5-1.5); Blood MetHb 0.2 % (0.0-1.5); HCO3 31.8 mmol/L (22-26.0); HHb 5.8 % (0.0-5.0); MODE VENT - CPAP; O2Hb 93.4 % (94.0-97.0); PCO2 40.7 mmHg (35.0-45.0); PCO2(T) 40.7 mmHg (35.0-45.0); PO2 71.7 mmHg (80.0-100.0); PO2(T) 71.7 mmHg (80.0-100.0); Pressure Support 8; Sample Type Arterial; pH 7.511 (7.350-7.450)
[2017-03-15] MEDS: POTASSIUM CHL 10% (20 MEQ/15ML) ORAL SOLN GT SCH (09:18)
[2017-03-15] MEDS: OMEPRAZOLE 20MG/10ML ORAL SUSP NG SCH (09:18)
[2017-03-15] MEDS: ASCORBIC ACID 500 MG TAB PO SCH ×2 (09:19→21:05)
[2017-03-15] MEDS: AMIODARONE HCL 200 MG TAB PO SCH ×2 (09:19→21:03)
[2017-03-15] MEDS: MULTIPLE VITAMIN PO SCH (09:19)
[2017-03-15] MEDS: LISINOPRIL 10 MG TAB PO SCH (09:19)
[2017-03-15] MEDS: GABAPENTIN 300 MG CAP PO SCH ×2 (09:19→21:05)
[2017-03-15] MEDS: ZINC SULFATE 220 MG CAP PO SCH (09:19)
[2017-03-15] MEDS: ENOXAPARIN SOD 40 MG/0.4 ML SYRINGE SC SCH (09:19)
[2017-03-15] MEDS: DIGOXIN 0.125 MG TAB PO SCH (09:19)
[2017-03-15] MEDS: CARVEDILOL 3.125 MG TAB PO SCH ×2 (09:19→21:04)
[2017-03-15] MEDS ORDERED: TEMAZEPAM 15 MG CAP PO PRN (10:45)
[2017-03-15] MEDS ORDERED: HYDROcodone-ACET 10/325MG TAB PO PRN (10:45)
[2017-03-15] MEDS ORDERED: VANCOMYCIN PER PHARMACY 0 MG IV SCH (11:00)
[2017-03-15] MEDS ORDERED: ASPirin-EC 81 mg tab PO ONE (11:00)
[2017-03-15] MEDS: VANCOMYCIN 1GM/250ML D5W 250 ML IV SCH (13:30)
[2017-03-15] MEDS: SODIUM CHLORIDE 0.9% 1,000 ML IV SCH (13:59)
[2017-03-15] MEDS: INSULIN DETEMIR(LEVEMIR) 1unit/0.01ml Soln (100units/ml) SC SCH (21:11)
[2017-03-16] VITALS (94 sets, daily range): BP systolic 94–135; BP diastolic 37–77
[2017-03-16] MEDS: VANCOMYCIN 1GM/250ML D5W 250 ML IV SCH ×2 (00:29→13:31)
[2017-03-16] MEDS: NOREPINEPHRINE BITARTRATE 250 ML IV SCH (00:53)
[2017-03-16] MEDS: SPIRONOLACTONE 25 MG TAB PO SCH ×2 (05:58→18:08)
[2017-03-16] MEDS: InsuLIN REG 1unit/0.01ml Soln (100units/ml) SC SCH ×4 (05:58→21:18)
[2017-03-16] MEDS: ACCU-CHEK COMFORT CURVE STRIP VI SCH ×4 (06:02→21:19)
[2017-03-16] MEDS: ALBUTEROL SULF 2.5 MG/0.5ML(0.5%) NEB SOLN NEB SCH ×4 (06:29→19:13)
[2017-03-16] MEDS: ACETYLCYSTEINE 10 %(100MG/ML) SOL 4ML NEB SCH ×2 (06:29→23:15)
[2017-03-16] MEDS: IPRATROPIUM BROM 0.5 MG/2.5ML INH SOL NEB SCH ×4 (06:29→19:13)
[2017-03-16] MEDS: MORPHINE SULF INJ 2 MG/ML SYRINGE 1ML IV PRN ×4 (08:34→23:25)
[2017-03-16] MEDS: PANTOPRAZOLE 40 MG TAB PO SCH (10:49)
[2017-03-16] MEDS: ZINC SULFATE 220 MG CAP PO SCH (10:49)
[2017-03-16] MEDS: ASPirin-EC 81 mg tab PO SCH (10:49)
[2017-03-16] MEDS: GABAPENTIN 300 MG CAP PO SCH ×2 (10:49→21:18)
[2017-03-16] MEDS: LISINOPRIL 10 MG TAB PO SCH (10:50)
[2017-03-16] MEDS: AMIODARONE HCL 200 MG TAB PO SCH ×2 (10:50→21:17)
[2017-03-16] MEDS: MULTIPLE VITAMIN PO SCH (10:51)
[2017-03-16] MEDS: ASCORBIC ACID 500 MG TAB PO SCH ×2 (10:51→21:18)
[2017-03-16] MEDS: DIGOXIN 0.125 MG TAB PO SCH (10:51)
[2017-03-16] MEDS: ENOXAPARIN SOD 40 MG/0.4 ML SYRINGE SC SCH (10:51)
[2017-03-16] MEDS: CARVEDILOL 3.125 MG TAB PO SCH ×2 (13:32→21:17)
[2017-03-16] MEDS: SODIUM CHLORIDE 0.9% 1,000 ML IV SCH (15:55)
[2017-03-16] MEDS: INSULIN DETEMIR(LEVEMIR) 1unit/0.01ml Soln (100units/ml) SC SCH (21:19)
[2017-03-16] MEDS: ALBUTEROL SULF 2.5 MG/0.5ML(0.5%) NEB SOLN NEB PRN (23:15)
[2017-03-17] VITALS (8 sets, daily range): BP systolic 98–163; BP diastolic 50–76
[2017-03-17] MEDS: VANCOMYCIN 1GM/250ML D5W 250 ML IV SCH (02:03)
[2017-03-17] MEDS: MORPHINE SULF INJ 2 MG/ML SYRINGE 1ML IV PRN ×4 (03:30→20:12)
[2017-03-17] MEDS: ALBUTEROL SULF 2.5 MG/0.5ML(0.5%) NEB SOLN NEB SCH ×4 (06:02→19:29)
[2017-03-17] MEDS: IPRATROPIUM BROM 0.5 MG/2.5ML INH SOL NEB SCH ×4 (06:02→19:29)
[2017-03-17] MEDS: ACETYLCYSTEINE 10 %(100MG/ML) SOL 4ML NEB SCH ×2 (06:03→19:29)
[2017-03-17] MEDS: SPIRONOLACTONE 25 MG TAB PO SCH ×2 (06:22→18:20)
[2017-03-17] MEDS: InsuLIN REG 1unit/0.01ml Soln (100units/ml) SC SCH ×4 (06:23→22:00)
[2017-03-17] MEDS: ACCU-CHEK COMFORT CURVE STRIP VI SCH ×4 (06:23→22:43)
[2017-03-17 09:41] LABS: Basophils # (auto) 0 uL; Basophils % (auto) 0.3 % (0.0-2.0); CONDITION Y; Eosinophils # (auto) 0.2 uL; Eosinophils % (auto) 2.9 % (0.0-7.0); Hematocrit 38.1 % (41.0-53.0); Hemoglobin 12.8 g/dL (13.5-17.5); Lymphocytes # (auto) 0.9 uL; Lymphocytes % (auto) 10.1 % (10.0-50.0); Mean Corpuscular Hemoglobin 29.6 pg (28.0-32.0); Mean Corpuscular Hgb Conc. 33.5 g/dL (32.0-36.0); Mean Corpuscular Volume 88.4 fL (80.0-100.0); Mean Platelet Volume 8.1 fL (7.4-10.4); Monocytes # (auto) 0.8 uL; Monocytes % (auto) 9.4 % (0.0-12.0); Neutrophils # (auto) 6.5 uL; Neutrophils % (auto) 77.3 % (37.0-80.0); Platelet Count (auto) 340 10^3/uL (140-450); White Blood Cell 8.5 10^3/uL (4.4-10.8)
[2017-03-17] MEDS ORDERED: VANCOMYCIN 1GM/250ML D5W 250 ML IV SCH (10:00)
[2017-03-17] MEDS: LISINOPRIL 10 MG TAB PO SCH (10:00)
[2017-03-17 10:04] LABS: BUN/Creatinine Ratio 31.4; Calcium 8.3 mg/dL (8.5-10.1); Potassium 3.7 mmol/L (3.5-5.1)
[2017-03-17] MEDS: ENOXAPARIN SOD 40 MG/0.4 ML SYRINGE SC SCH (10:26)
[2017-03-17] MEDS: ZINC SULFATE 220 MG CAP PO SCH (10:26)
[2017-03-17] MEDS: GABAPENTIN 300 MG CAP PO SCH ×2 (10:26→22:43)
[2017-03-17] MEDS: ASCORBIC ACID 500 MG TAB PO SCH ×2 (10:27→22:43)
[2017-03-17] MEDS: PANTOPRAZOLE 40 MG TAB PO SCH (10:27)
[2017-03-17] MEDS: ASPirin-EC 81 mg tab PO SCH (10:27)
[2017-03-17] MEDS: DIGOXIN 0.125 MG TAB PO SCH (10:27)
[2017-03-17] MEDS: AMIODARONE HCL 200 MG TAB PO SCH ×2 (10:27→22:44)
[2017-03-17] MEDS: CARVEDILOL 3.125 MG TAB PO SCH ×2 (10:35→22:44)
[2017-03-17] MEDS: MULTIPLE VITAMIN PO SCH (12:57)
[2017-03-17] MEDS: SODIUM CHLORIDE 0.9% 1,000 ML IV SCH (13:45)
[2017-03-18] MEDS: MORPHINE SULF INJ 2 MG/ML SYRINGE 1ML IV PRN ×4 (03:44→20:35)
[2017-03-18 05:24] VITALS: BP 107/56
[2017-03-18] MEDS: ALBUTEROL SULF 2.5 MG/0.5ML(0.5%) NEB SOLN NEB SCH ×4 (05:52→18:44)
[2017-03-18] MEDS: IPRATROPIUM BROM 0.5 MG/2.5ML INH SOL NEB SCH ×4 (05:52→18:43)
[2017-03-18] MEDS: SPIRONOLACTONE 25 MG TAB PO SCH ×2 (06:02→18:06)
[2017-03-18] MEDS: ACCU-CHEK COMFORT CURVE STRIP VI SCH ×4 (06:36→22:10)
[2017-03-18] MEDS: InsuLIN REG 1unit/0.01ml Soln (100units/ml) SC SCH ×4 (06:36→22:17)
[2017-03-18] MEDS: LISINOPRIL 10 MG TAB PO SCH (10:00)
[2017-03-18] MEDS: DIGOXIN 0.125 MG TAB PO SCH (10:00)
[2017-03-18] MEDS: MULTIPLE VITAMIN PO SCH (10:00)
[2017-03-18] MEDS: GABAPENTIN 300 MG CAP PO SCH ×2 (10:00→22:09)
[2017-03-18 10:04] VITALS: BP 129/75
[2017-03-18] MEDS: ASCORBIC ACID 500 MG TAB PO SCH ×2 (10:07→22:09)
[2017-03-18] MEDS: CARVEDILOL 3.125 MG TAB PO SCH ×2 (10:07→22:09)
[2017-03-18] MEDS: PANTOPRAZOLE 40 MG TAB PO SCH (10:08)
[2017-03-18] MEDS: AMIODARONE HCL 200 MG TAB PO SCH ×2 (10:09→22:09)
[2017-03-18] MEDS: ASPirin-EC 81 mg tab PO SCH (10:11)
[2017-03-18] MEDS: ZINC SULFATE 220 MG CAP PO SCH (10:11)
[2017-03-18] MEDS: ENOXAPARIN SOD 40 MG/0.4 ML SYRINGE SC SCH (10:16)
[2017-03-18] MEDS: ACETYLCYSTEINE 10 %(100MG/ML) SOL 4ML NEB SCH ×2 (10:28→18:44)
[2017-03-18] MEDS: ONDANSETRON HCL 4 MG/2 ML VIAL IV PRN ×2 (11:30→15:41)
[2017-03-18] MEDS: SODIUM CHLORIDE 0.9% 1,000 ML IV SCH (13:45)
[2017-03-18 14:39] VITALS: BP 125/69
[2017-03-18 17:34] VITALS: BP 122/58
[2017-03-18 20:00] VITALS: BP 122/53
[2017-03-18 22:00] VITALS: BP 122/53
[2017-03-19] MEDS: MORPHINE SULF INJ 2 MG/ML SYRINGE 1ML IV PRN ×4 (00:35→18:22)
[2017-03-19 05:30] VITALS: BP 125/59
[2017-03-19] MEDS: SPIRONOLACTONE 25 MG TAB PO SCH ×2 (06:05→18:20)
[2017-03-19] MEDS: InsuLIN REG 1unit/0.01ml Soln (100units/ml) SC SCH ×3 (06:08→17:00)
[2017-03-19] MEDS: ACCU-CHEK COMFORT CURVE STRIP VI SCH ×3 (06:08→17:00)
[2017-03-19] MEDS: IPRATROPIUM BROM 0.5 MG/2.5ML INH SOL NEB SCH ×4 (06:10→19:03)
[2017-03-19] MEDS: ALBUTEROL SULF 2.5 MG/0.5ML(0.5%) NEB SOLN NEB SCH ×4 (06:10→19:03)
[2017-03-19] MEDS: ACETYLCYSTEINE 10 %(100MG/ML) SOL 4ML NEB SCH (06:10)
[2017-03-19 09:00] VITALS: BP 106/66
[2017-03-19 09:02] LABS: Allen Test Yes; Base Excess 3.2 mmol/L (-2.0-2.0); Blood 02Sat 84.5 % (96-100); Blood COHb 0.6 % (0.5-1.5); Blood MetHb 0.1 % (0.0-1.5); HCO3 27.8 mmol/L (22-26.0); HHb 15.4 % (0.0-5.0); MODE ROOM AIR; O2Hb 83.9 % (94.0-97.0); PCO2 42.6 mmHg (35.0-45.0); PCO2(T) 42.6 mmHg (35.0-45.0); PO2 49.3 mmHg (80.0-100.0); PO2(T) 49.3 mmHg (80.0-100.0); Room 0275T; Sample Type Arterial; pH 7.433 (7.350-7.450)
[2017-03-19] MEDS: ASPirin-EC 81 mg tab PO SCH (09:44)
[2017-03-19] MEDS: GABAPENTIN 300 MG CAP PO SCH (09:44)
[2017-03-19] MEDS: PANTOPRAZOLE 40 MG TAB PO SCH (09:44)
[2017-03-19] MEDS: ASCORBIC ACID 500 MG TAB PO SCH (09:44)
[2017-03-19] MEDS: ZINC SULFATE 220 MG CAP PO SCH (09:45)
[2017-03-19] MEDS: LISINOPRIL 10 MG TAB PO SCH (09:48)
[2017-03-19] MEDS: DIGOXIN 0.125 MG TAB PO SCH (09:48)
[2017-03-19] MEDS: AMIODARONE HCL 200 MG TAB PO SCH (09:49)
[2017-03-19] MEDS: CARVEDILOL 3.125 MG TAB PO SCH (09:50)
[2017-03-19] MEDS: ENOXAPARIN SOD 40 MG/0.4 ML SYRINGE SC SCH (09:53)
[2017-03-19] MEDS: MULTIPLE VITAMIN PO SCH (10:00)
[2017-03-19 12:33] VITALS: BP 120/64
[2017-03-19] MEDS: SODIUM CHLORIDE 0.9% 1,000 ML IV SCH (13:45)
[2017-03-19 17:00] VITALS: BP 140/49
== END 2017-03-19 20:30 | disposition home or self-care (01) | DRG 130 ==
LOC: ER 13:53 → TELE 13:54 → DOU IN ICU 19:54 → TELE-EAST 03-07 22:52 → ICU WEST 03-09 23:09 → DOU IN ICU 03-16 23:50 → TELE-WESTW 03-17 13:08
PROVIDERS: ADMIT Internal Medicine; ATTEND Internal Medicine Pulmonary Disease
PROC: 5A1955Z Respiratory Ventilation, Greater than 96 Consecutive Hours (ICD-10-PCS; principal; 2017-03-04)
PROC: 0W9B30Z Drainage of Left Pleural Cavity with Drainage Device, Percutaneous Approach (ICD-10-PCS; 2017-03-04)
PROC: 0BH17EZ Insertion of Endotracheal Airway into Trachea, Via Natural or Artificial Opening (ICD-10-PCS; 2017-03-10)
PROC: 0BBM8ZX Excision of Bilateral Lungs, Via Natural or Artificial Opening Endoscopic, Diagnostic (ICD-10-PCS; 2017-03-17)
DX: J96.21 Acute and chronic respiratory failure with hypoxia (principal); I50.23 Acute on chronic systolic (congestive) heart failure; J18.9 Pneumonia, unspecified organism; I13.0 Hypertensive heart and chronic kidney disease with heart failure and stage 1 through stage 4 chronic kidney disease, or unspecified chronic kidney disease; E11.21 Type 2 diabetes mellitus with diabetic nephropathy; L89.93 Pressure ulcer of unspecified site, stage 3; E11.40 Type 2 diabetes mellitus with diabetic neuropathy, unspecified; J93.83 Other pneumothorax; E11.621 Type 2 diabetes mellitus with foot ulcer; I25.10 Atherosclerotic heart disease of native coronary artery without angina pectoris; Z95.1 Presence of aortocoronary bypass graft; E87.1 Hypo-osmolality and hyponatremia; R04.2 Hemoptysis; J98.11 Atelectasis; Z89.511 Acquired absence of right leg below knee; N18.2 Chronic kidney disease, stage 2 (mild); Z95.810 Presence of automatic (implantable) cardiac defibrillator; Z83.3 Family history of diabetes mellitus; Z82.49 Family history of ischemic heart disease and other diseases of the circulatory system; L97.529 Non-pressure chronic ulcer of other part of left foot with unspecified severity; E11.22 Type 2 diabetes mellitus with diabetic chronic kidney disease; F17.210 Nicotine dependence, cigarettes, uncomplicated; I25.5 Ischemic cardiomyopathy; J44.0 Chronic obstructive pulmonary disease with (acute) lower respiratory infection; Y95 Nosocomial condition; Z71.89 Other specified counseling; E11.51 Type 2 diabetes mellitus with diabetic peripheral angiopathy without gangrene; B95.8 Unspecified staphylococcus as the cause of diseases classified elsewhere; Z23 Encounter for immunization; J98.09 Other diseases of bronchus, not elsewhere classified
CPT/HCPCS: 32551; 36415; 36600; 71010; 71020; 73620; 76775; 80048; 80053; 80202; 82805; 82962; 83036; 83735; 83880; 84484; 85025; 85379; 85610; 85730; 87040; 87070; 87077; 87081; 87186; 87205; 93005; 93926; 93970; 94002; 94003; 94640; 94660; 96365; 96375; 97110; 97116; 97530; 99291; J0171; J0330; J0696; J1815; J1953; J2250; J2405; J2704; J3490

== ENCOUNTER 2017-11-21 11:58 | Inpatient (IN) | payer MEDICAID ==
[~2017-11-21] VITALS: Ht 190.5 cm; Wt 81.6 kg
[~2017-11-21 11:58] MED LIST changes: +AMIO200T33 PO; -ASPI81CH43; +CAR3125T PO; -FAMO40TA49; -FENO5TAB; +GABA300C10 PO; -GLIP1TAB38; +HYDR-4683 PO; +INSLANTI SC; +LISI10TA6 PO; +PANT40TA2 PO; +TIOTCAP IN
[2017-11-21] MEDS ORDERED: VANCOMYCIN 1GM/250ML 250 ML IV ONE (13:00)
[2017-11-21] MEDS ORDERED: SODIUM CHLORIDE 0.9% 500 ML IV ONE (13:00)
[2017-11-21 13:58] LABS: Basophils # (auto) 0.1 uL; Basophils % (auto) 1.5 % (0.0-2.0); Eosinophils # (auto) 0.3 uL; Eosinophils % (auto) 4.2 % (0.0-7.0); Hematocrit 48.2 % (41.0-53.0); Hemoglobin 16.1 g/dL (13.5-17.5); Lymphocytes # (auto) 1.9 uL; Lymphocytes % (auto) 30.4 % (10.0-50.0); Mean Corpuscular Hemoglobin 29.7 pg (28.0-32.0); Mean Corpuscular Hgb Conc. 33.3 g/dL (32.0-36.0); Monocytes # (auto) 0.5 uL; Monocytes % (auto) 8.7 % (0.0-12.0); Neutrophils # (auto) 3.4 uL; Neutrophils % (auto) 55.2 % (37.0-80.0); Nucleated Red Blood Cells % 0.2 %; Platelet Count (auto) 216 10^3/uL (140-450); Red Blood Cells 5.42 10^6/uL (4.5-5.90); Red Cell Distribution Width 15.1 % (11.8-14.3); White Blood Cell 6.2 10^3/uL (4.4-10.8)
[2017-11-21 14:32] LABS: Albumin 3.4 g/dL (3.4-5.0); BUN/Creatinine Ratio 20.7; Bilirubin, Total 0.6 mg/dL (0.2-1.0); Calcium 8.7 mg/dL (8.5-10.1); Potassium 5.3 mmol/L (3.5-5.1); Total Protein 7.9 g/dL (6.4-8.2)
[2017-11-21] MEDS ORDERED: LACTULOSE 20Gm/30ML SOLN PO PRN (15:15)
[2017-11-21] MEDS ORDERED: ACETAMINOPHEN 500 MG TAB PO PRN (15:15)
[2017-11-21] MEDS ORDERED: PROMETHAZINE HCL 25 MG/ML 1ML IV PRN (15:15)
[2017-11-21] MEDS ORDERED: NITROGLYCERIN 0.4 MG SL TAB SL PRN (15:15)
[2017-11-21] MEDS ORDERED: MORPHINE SULFATE 4 MG/ML SYR/VIAL IV PRN (15:15)
[2017-11-21] MEDS ORDERED: DEXTROSE (50%) 50ML SYRG IV PRN (15:15)
[2017-11-21] MEDS ORDERED: VANCOMYCIN PER PHARMACY 0 MG IV SCH (15:15)
[2017-11-21] MEDS: SODIUM CHLORIDE 0.9% 1,000 ML IV SCH (15:44)
[2017-11-21] MEDS: cefTRIAXone 1GM/10ml IVPUSH 10 ML IV SCH (15:54)
[2017-11-21] MEDS: ENOXAPARIN SOD 40 MG/0.4 ML SYRINGE SC SCH (15:54)
[2017-11-21] MEDS: ACCU-CHEK COMFORT CURVE STRIP VI SCH ×2 (17:43→22:04)
[2017-11-21] MEDS: InsuLIN REG 1unit/0.01ml Soln (100units/ml) SC SCH ×2 (17:43→22:00)
[2017-11-21 19:30] VITALS: BP 156/77
[2017-11-21] MEDS: ALBUTEROL SULF 2.5 MG/0.5ML(0.5%) NEB SOLN NEB SCH (19:34)
[2017-11-21] MEDS: IPRATROPIUM BROM 0.5 MG/2.5ML INH SOL NEB SCH (19:35)
[2017-11-21] MEDS: INSULIN LANTUS (GLARGINE) 1 /0.01ml (100units/ml) SC SCH (22:00)
[2017-11-21] MEDS: AMIODARONE HCL 200 MG TAB PO SCH (22:02)
[2017-11-21] MEDS: CARVEDILOL 3.125 MG TAB PO SCH (22:03)
[2017-11-21] MEDS: TEMAZEPAM 15 MG CAP PO PRN (22:08)
[2017-11-21] MEDS: HYDROcodone-ACET 5/325MG TAB PO PRN (22:11)
[2017-11-21 22:50] VITALS: BP 156/85
[2017-11-21 22:51] VITALS: BP 156/77
[2017-11-21] MEDS: VANCOMYCIN 1GM/250ML 250 ML IV SCH (23:03)
[2017-11-22] MEDS: ALBUTEROL SULF 2.5 MG/0.5ML(0.5%) NEB SOLN NEB SCH ×4 (00:30→20:01)
[2017-11-22] MEDS: IPRATROPIUM BROM 0.5 MG/2.5ML INH SOL NEB SCH ×4 (00:30→20:01)
[2017-11-22] MEDS: SODIUM CHLORIDE 0.9% 1,000 ML IV SCH ×2 (01:17→11:37)
[2017-11-22 05:25] VITALS: BP 143/81
[2017-11-22 06:13] LABS: BUN/Creatinine Ratio 17.1; Calcium 8.3 mg/dL (8.5-10.1); Potassium 4.4 mmol/L (3.5-5.1)
[2017-11-22] MEDS: ACCU-CHEK COMFORT CURVE STRIP VI SCH ×4 (06:28→21:42)
[2017-11-22] MEDS: InsuLIN REG 1unit/0.01ml Soln (100units/ml) SC SCH ×4 (06:29→21:43)
[2017-11-22 08:00] VITALS: BP 143/81
[2017-11-22 09:00] VITALS: BP 147/74
[2017-11-22] MEDS: CARVEDILOL 3.125 MG TAB PO SCH ×2 (09:41→21:31)
[2017-11-22] MEDS: AMIODARONE HCL 200 MG TAB PO SCH ×2 (09:41→21:30)
[2017-11-22] MEDS: cefTRIAXone 1GM/10ml IVPUSH 10 ML IV SCH (09:44)
[2017-11-22] MEDS: VANCOMYCIN 1GM/250ML 250 ML IV SCH ×2 (09:44→19:33)
[2017-11-22] MEDS: ENOXAPARIN SOD 40 MG/0.4 ML SYRINGE SC SCH (09:44)
[2017-11-22] MEDS: PANTOPRAZOLE 40 MG TAB PO SCH (09:45)
[2017-11-22] MEDS: GABAPENTIN 300 MG CAP PO SCH (09:46)
[2017-11-22] MEDS ORDERED: PATIENTS OWN MEDICATION (Tiotropium Bromide Monohydrate (Spiriva Handihaler) 18 MCG) IN SCH (10:00)
[2017-11-22 13:00] VITALS: BP 156/76
[2017-11-22] MEDS: HYDROcodone-ACET 5/325MG TAB PO PRN (13:07)
[2017-11-22] MEDS: ASPirin 81 mg TAB PO SCH (15:29)
[2017-11-22 15:32] LABS: INR 1.05 (0.9-1.15); Partial Thromboplastin Time 29.6 sec (22.64-33.71); Prothrombin Time 11.4 sec (9.37-12.3)
[2017-11-22 17:00] VITALS: BP 146/71
[2017-11-22] MEDS: MORPHINE SULFATE 4 MG/ML SYR/VIAL IV PRN ×2 (17:00→21:44)
[2017-11-22] MEDS ORDERED: LIDOCAINE 1% HCL (LOCAL ANESTH.) INJ 20ML MDV ID ONE (18:45)
[2017-11-22] MEDS: SODIUM CHLOR 0.9% PF (SALINE LOCK) 10ML VIAL IV SCH (21:43)
[2017-11-22] MEDS: INSULIN LANTUS (GLARGINE) 1 /0.01ml (100units/ml) SC SCH (21:43)
[2017-11-22 22:00] VITALS: BP 153/75
[2017-11-23] MEDS: ALBUTEROL SULF 2.5 MG/0.5ML(0.5%) NEB SOLN NEB SCH ×4 (00:51→18:55)
[2017-11-23] MEDS: IPRATROPIUM BROM 0.5 MG/2.5ML INH SOL NEB SCH ×4 (00:51→18:55)
[2017-11-23] MEDS: MORPHINE SULFATE 4 MG/ML SYR/VIAL IV PRN ×4 (03:10→21:52)
[2017-11-23] MEDS: ALBUTEROL SULF 2.5 MG/0.5ML(0.5%) NEB SOLN NEB PRN (03:28)
[2017-11-23] MEDS: VANCOMYCIN 1GM/250ML 250 ML IV SCH ×3 (05:00→20:26)
[2017-11-23 05:21] VITALS: BP 134/76
[2017-11-23 05:22] LABS: INR 1.04 (0.9-1.15); Partial Thromboplastin Time 26.3 sec (22.64-33.71); Prothrombin Time 11.3 sec (9.37-12.3)
[2017-11-23 05:49] LABS: BUN/Creatinine Ratio 18.2; Calcium 8.5 mg/dL (8.5-10.1); Potassium 4.3 mmol/L (3.5-5.1)
[2017-11-23] MEDS: ACCU-CHEK COMFORT CURVE STRIP VI SCH ×4 (07:00→21:55)
[2017-11-23] MEDS: InsuLIN REG 1unit/0.01ml Soln (100units/ml) SC SCH ×4 (07:00→21:55)
[2017-11-23 09:00] VITALS: BP 129/64
[2017-11-23] MEDS: cefTRIAXone 1GM/10ml IVPUSH 10 ML IV SCH (09:44)
[2017-11-23] MEDS: ASPirin 81 mg TAB PO SCH (09:47)
[2017-11-23] MEDS: GABAPENTIN 300 MG CAP PO SCH (09:47)
[2017-11-23] MEDS: ENOXAPARIN SOD 40 MG/0.4 ML SYRINGE SC SCH (09:48)
[2017-11-23] MEDS: PANTOPRAZOLE 40 MG TAB PO SCH (09:48)
[2017-11-23] MEDS: CARVEDILOL 3.125 MG TAB PO SCH ×2 (09:51→21:54)
[2017-11-23] MEDS: SODIUM CHLOR 0.9% PF (SALINE LOCK) 10ML VIAL IV SCH ×2 (09:51→21:52)
[2017-11-23] MEDS: AMIODARONE HCL 200 MG TAB PO SCH ×2 (09:51→21:54)
[2017-11-23 13:00] VITALS: BP 155/74
[2017-11-23 16:44] VITALS: BP 144/72
[2017-11-23] MEDS ORDERED: diphenhdrAMINE HCL 50 MG/1 ML VL IV ONE (19:00)
[2017-11-23 22:14] VITALS: BP 143/69
[2017-11-23] MEDS: TEMAZEPAM 15 MG CAP PO PRN (22:26)
[2017-11-23] MEDS: INSULIN LANTUS (GLARGINE) 1 /0.01ml (100units/ml) SC SCH (22:29)
[2017-11-24] MEDS: IPRATROPIUM BROM 0.5 MG/2.5ML INH SOL NEB SCH ×5 (00:41→23:54)
[2017-11-24] MEDS: ALBUTEROL SULF 2.5 MG/0.5ML(0.5%) NEB SOLN NEB SCH ×5 (00:41→23:54)
[2017-11-24] MEDS: MORPHINE SULFATE 4 MG/ML SYR/VIAL IV PRN ×3 (04:50→21:23)
[2017-11-24 05:30] VITALS: BP 137/68
[2017-11-24 05:34] LABS: Basophils # (auto) 0.1 uL; Eosinophils # (auto) 0.3 uL; Eosinophils % (auto) 3.5 % (0.0-7.0); Hematocrit 47.2 % (41.0-53.0); Hemoglobin 15.7 g/dL (13.5-17.5); Lymphocytes # (auto) 1.5 uL; Lymphocytes % (auto) 16.3 % (10.0-50.0); Mean Corpuscular Hemoglobin 29.1 pg (28.0-32.0); Mean Corpuscular Hgb Conc. 33.3 g/dL (32.0-36.0); Mean Corpuscular Volume 87.6 fL (80.0-100.0); Monocytes # (auto) 0.9 uL; Monocytes % (auto) 10.1 % (0.0-12.0); Neutrophils # (auto) 6.3 uL; Neutrophils % (auto) 69.1 % (37.0-80.0); Nucleated Red Blood Cells % 0.1 %; Platelet Count (auto) 213 10^3/uL (140-450); Red Blood Cells 5.39 10^6/uL (4.5-5.90); Red Cell Distribution Width 14.6 % (11.8-14.3); White Blood Cell 9.1 10^3/uL (4.4-10.8)
[2017-11-24] MEDS: VANCOMYCIN 1GM/250ML 250 ML IV SCH ×2 (06:33→16:59)
[2017-11-24] MEDS: InsuLIN REG 1unit/0.01ml Soln (100units/ml) SC SCH ×5 (06:33→22:27)
[2017-11-24] MEDS: ACCU-CHEK COMFORT CURVE STRIP VI SCH ×4 (06:33→21:23)
[2017-11-24 09:00] VITALS: BP 113/68
[2017-11-24] MEDS: cefTRIAXone 1GM/10ml IVPUSH 10 ML IV SCH (09:39)
[2017-11-24] MEDS: GABAPENTIN 300 MG CAP PO SCH (09:40)
[2017-11-24] MEDS: CARVEDILOL 3.125 MG TAB PO SCH ×2 (09:40→21:22)
[2017-11-24] MEDS: AMIODARONE HCL 200 MG TAB PO SCH ×2 (09:40→21:22)
[2017-11-24] MEDS: ASPirin 81 mg TAB PO SCH (09:41)
[2017-11-24] MEDS: ENOXAPARIN SOD 40 MG/0.4 ML SYRINGE SC SCH (09:41)
[2017-11-24] MEDS: SODIUM CHLOR 0.9% PF (SALINE LOCK) 10ML VIAL IV SCH ×2 (09:41→21:23)
[2017-11-24] MEDS: PANTOPRAZOLE 40 MG TAB PO SCH (09:41)
[2017-11-24] MEDS: ALBUTEROL SULF 2.5 MG/0.5ML(0.5%) NEB SOLN NEB PRN (10:18)
[2017-11-24] MEDS ORDERED: IOHEXOL 350 MG/ML 100ML IJ ONE ×2 (10:53→12:43)
[2017-11-24] MEDS ORDERED: LIDOCAINE 2%HCL (LOCAL ANESTH.) INJ 20ML MDV ONE (10:53)
[2017-11-24] MEDS ORDERED: SODIUM CHL 0.9% 50 ML ONE ×2 (11:08→12:33)
[2017-11-24] MEDS ORDERED: ANGIOMAX 250 MG VIAL IV ONE ×2 (11:08→12:33)
[2017-11-24] MEDS ORDERED: fentaNYL CITRATE 100 MCG/2 ML VL ONE ×2 (11:08→12:38)
[2017-11-24] MEDS ORDERED: MIDAZOLAM HCL 1MG/1ML-2 ML VIAL ONE ×2 (11:08→11:53)
[2017-11-24] MEDS ORDERED: CLOPIDOGREL 300 MG TAB ONE (13:44)
[2017-11-24 17:00] VITALS: BP 128/74
[2017-11-24] MEDS ORDERED: PNEUMOCOCCAL VACC POLYS 25 MCG/0.5 ML VIAL IM ONE (21:45)
[2017-11-24] MEDS ORDERED: INFLUENZA QUAD 2017-2018 0.5 ML SYRG IM ONE (21:45)
[2017-11-24 22:00] VITALS: BP 114/57
[2017-11-24] MEDS: TEMAZEPAM 15 MG CAP PO PRN (22:27)
[2017-11-24] MEDS: INSULIN LANTUS (GLARGINE) 1 /0.01ml (100units/ml) SC SCH (22:28)
[2017-11-25] VITALS (8 sets, daily range): BP systolic 107–139; BP diastolic 51–91
[2017-11-25] MEDS: VANCOMYCIN 1GM/250ML 250 ML IV SCH ×3 (02:17→22:19)
[2017-11-25] MEDS: MORPHINE SULFATE 4 MG/ML SYR/VIAL IV PRN ×6 (02:18→22:52)
[2017-11-25] MEDS: LORazepam 0.5 MG TAB PO PRN ×3 (04:01→19:43)
[2017-11-25] MEDS: InsuLIN REG 1unit/0.01ml Soln (100units/ml) SC SCH ×5 (05:34→22:19)
[2017-11-25] MEDS: ACCU-CHEK COMFORT CURVE STRIP VI SCH ×4 (05:35→22:20)
[2017-11-25] MEDS: ALBUTEROL SULF 2.5 MG/0.5ML(0.5%) NEB SOLN NEB SCH ×3 (07:58→18:53)
[2017-11-25] MEDS: IPRATROPIUM BROM 0.5 MG/2.5ML INH SOL NEB SCH ×3 (07:58→18:53)
[2017-11-25] MEDS: CARVEDILOL 3.125 MG TAB PO SCH ×2 (10:00→21:27)
[2017-11-25] MEDS: ENOXAPARIN SOD 40 MG/0.4 ML SYRINGE SC SCH (10:00)
[2017-11-25] MEDS: AMIODARONE HCL 200 MG TAB PO SCH ×2 (10:00→21:24)
[2017-11-25] MEDS: PANTOPRAZOLE 40 MG TAB PO SCH (10:10)
[2017-11-25] MEDS: GABAPENTIN 300 MG CAP PO SCH (10:10)
[2017-11-25] MEDS: CLOPIDOGREL BISULFATE 75 MG TAB PO SCH (10:11)
[2017-11-25] MEDS: ASPirin 81 mg TAB PO SCH (10:11)
[2017-11-25] MEDS: cefTRIAXone 1GM/10ml IVPUSH 10 ML IV SCH (10:13)
[2017-11-25] MEDS: SODIUM CHLOR 0.9% PF (SALINE LOCK) 10ML VIAL IV SCH ×2 (10:14→22:19)
[2017-11-25] MEDS ORDERED: CLOP75TA28 PO (10:54)
[2017-11-25] MEDS ORDERED: HYDROcodone-ACET 7.5/325MG TAB PO PRN (17:15)
[2017-11-25] MEDS: INSULIN LANTUS (GLARGINE) 1 /0.01ml (100units/ml) SC SCH (22:20)
[2017-11-25] MEDS: TEMAZEPAM 15 MG CAP PO PRN (22:52)
[2017-11-26] MEDS: IPRATROPIUM BROM 0.5 MG/2.5ML INH SOL NEB SCH ×2 (00:10→07:02)
[2017-11-26] MEDS: ALBUTEROL SULF 2.5 MG/0.5ML(0.5%) NEB SOLN NEB SCH ×2 (00:10→07:02)
[2017-11-26] MEDS: MORPHINE SULFATE 4 MG/ML SYR/VIAL IV PRN ×2 (02:46→06:42)
[2017-11-26 05:27] VITALS: BP 109/58
[2017-11-26] MEDS: InsuLIN REG 1unit/0.01ml Soln (100units/ml) SC SCH (06:17)
[2017-11-26] MEDS: ACCU-CHEK COMFORT CURVE STRIP VI SCH (06:19)
[2017-11-26 07:28] LABS: Basophils # (auto) 0.1 uL; Basophils % (auto) 0.7 % (0.0-2.0); Eosinophils # (auto) 0.2 uL; Eosinophils % (auto) 2.7 % (0.0-7.0); Hematocrit 40.9 % (41.0-53.0); Hemoglobin 13.7 g/dL (13.5-17.5); Lymphocytes # (auto) 1.3 uL; Lymphocytes % (auto) 14.2 % (10.0-50.0); Mean Corpuscular Hemoglobin 29.2 pg (28.0-32.0); Mean Corpuscular Hgb Conc. 33.4 g/dL (32.0-36.0); Mean Corpuscular Volume 87.6 fL (80.0-100.0); Monocytes # (auto) 1.2 uL; Monocytes % (auto) 12.9 % (0.0-12.0); Neutrophils # (auto) 6.3 uL; Neutrophils % (auto) 69.5 % (37.0-80.0); Nucleated Red Blood Cells % 0.1 %; Platelet Count (auto) 168 10^3/uL (140-450); Red Blood Cells 4.67 10^6/uL (4.5-5.90); Red Cell Distribution Width 14.5 % (11.8-14.3); White Blood Cell 9.1 10^3/uL (4.4-10.8)
[2017-11-26 07:47] LABS: BUN/Creatinine Ratio 18.7; Calcium 8.5 mg/dL (8.5-10.1); Potassium 3.9 mmol/L (3.5-5.1)
[2017-11-26] MEDS: VANCOMYCIN 1GM/250ML 250 ML IV SCH (07:55)
[2017-11-26 08:00] VITALS: BP 113/59
[2017-11-26] MEDS: cefTRIAXone 1GM/10ml IVPUSH 10 ML IV SCH (08:46)
[2017-11-26] MEDS: ASPirin 81 mg TAB PO SCH (09:42)
[2017-11-26] MEDS: PANTOPRAZOLE 40 MG TAB PO SCH (09:42)
[2017-11-26] MEDS: CLOPIDOGREL BISULFATE 75 MG TAB PO SCH (09:42)
[2017-11-26] MEDS: GABAPENTIN 300 MG CAP PO SCH (09:42)
[2017-11-26] MEDS: AMIODARONE HCL 200 MG TAB PO SCH (09:43)
[2017-11-26] MEDS: CARVEDILOL 3.125 MG TAB PO SCH (09:43)
[2017-11-26] MEDS: ENOXAPARIN SOD 40 MG/0.4 ML SYRINGE SC SCH (09:43)
[2017-11-26] MEDS: SODIUM CHLOR 0.9% PF (SALINE LOCK) 10ML VIAL IV SCH (09:43)
== END 2017-11-26 11:00 | disposition home health service (06) | DRG 711 ==
LOC: ER 11:58 → OVERFLOW 11:59 → WEST WING 19:34 → TELE-WESTW 19:51
PROVIDERS: ADMIT Internal Medicine; ATTEND Internal Medicine
PROC: 02HV33Z Insertion of Infusion Device into Superior Vena Cava, Percutaneous Approach (ICD-10-PCS; 2017-11-22)
PROC: 047L3Z1 Dilation of Left Femoral Artery using Drug-Coated Balloon, Percutaneous Approach (ICD-10-PCS; principal; 2017-11-24)
PROC: 047N3Z1 Dilation of Left Popliteal Artery using Drug-Coated Balloon, Percutaneous Approach (ICD-10-PCS; 2017-11-24)
PROC: B41G1ZZ Fluoroscopy of Left Lower Extremity Arteries using Low Osmolar Contrast (ICD-10-PCS; 2017-11-24)
DX: T81.4XXA Infection following a procedure, initial encounter (principal); E11.69 Type 2 diabetes mellitus with other specified complication; I96 Gangrene, not elsewhere classified; E11.52 Type 2 diabetes mellitus with diabetic peripheral angiopathy with gangrene; M86.8X7 Other osteomyelitis, ankle and foot; E87.5 Hyperkalemia; L97.828 Non-pressure chronic ulcer of other part of left lower leg with other specified severity; J44.9 Chronic obstructive pulmonary disease, unspecified; I25.10 Atherosclerotic heart disease of native coronary artery without angina pectoris; I77.1 Stricture of artery; E78.5 Hyperlipidemia, unspecified; F17.210 Nicotine dependence, cigarettes, uncomplicated; I70.202 Unspecified atherosclerosis of native arteries of extremities, left leg; B95.7 Other staphylococcus as the cause of diseases classified elsewhere; K59.00 Constipation, unspecified; F41.9 Anxiety disorder, unspecified; Y83.9 Surgical procedure, unspecified as the cause of abnormal reaction of the patient, or of later complication, without mention of misadventure at the time of the procedure; G47.00 Insomnia, unspecified; I10 Essential (primary) hypertension; I25.5 Ischemic cardiomyopathy; Z82.49 Family history of ischemic heart disease and other diseases of the circulatory system; Z83.3 Family history of diabetes mellitus; Z89.511 Acquired absence of right leg below knee; Z95.1 Presence of aortocoronary bypass graft; Z95.810 Presence of automatic (implantable) cardiac defibrillator; Z79.899 Other long term (current) drug therapy; Z79.4 Long term (current) use of insulin; Z23 Encounter for immunization
CPT/HCPCS: 36415; 36569; 37224; 71045; 73630; 75710; 80048; 80053; 80202; 82962; 83036; 85025; 85610; 85652; 85730; 87040; 93005; 93306; 93926; 94640; 94761; 96365; 96366; 99152; J1815; J2250

== ENCOUNTER → 2018-01-22 | Outpatient (CLI) | payer MEDICAID ==
[~2018-01-22] VITALS: Ht 195.6 cm; Wt 81.6 kg
[~2018-01-22] MED LIST changes: +ADENOSINE 69 MG in GIVE UN-DILUTED 0 ML IV ONE; +ADENOSINE 90 MG/30 ML INJ IV ONE; +CLOP75TA28 PO; -HYDR-4683 PO
== END | disposition home or self-care (01) ==
LOC: Rad HDHVI 10:08
PROVIDERS: ATTEND Internal Medicine
DX: I25.10 Atherosclerotic heart disease of native coronary artery without angina pectoris (principal); I10 Essential (primary) hypertension; E78.5 Hyperlipidemia, unspecified; I73.9 Peripheral vascular disease, unspecified; F17.200 Nicotine dependence, unspecified, uncomplicated; M86.9 Osteomyelitis, unspecified; Z98.62 Peripheral vascular angioplasty status; Z95.810 Presence of automatic (implantable) cardiac defibrillator
CPT/HCPCS: 78452; 93005; 96374; 96375; A9500; J0153